=== PATIENT | female | born 1970 | race African-American/Black ===

== ENCOUNTER 2020-06-14 06:34 | Observation (INO) | payer MEDICARE, MEDICAID, SELFPAY ==
[2020-06-14] VITALS (12 sets, daily range): BP systolic 107–134; BP diastolic 70–87; PULSE 63–96; RESP 16–22; TEMP 36.4–37; O2SAT 96–100; BMI 37.7
--- NOTE | ~2020-06-14 | CT_ITS ---
EXAMINATION: CT BRAIN W/O DATE: 06/14/2020 09:56 INDICATION: Seizure TECHNIQUE: Computed tomography (CT) of the head was performed without intravenous contrast. The dose- length product was 605.33 mGy-cm. Automated exposure control and iterative reconstruction technique w ere employed. COMPARISON: CT dated 03/25/2018 FINDINGS: Normal brain parenchymal volume for age. Normal rosales-white differentiation. No acute intrac ranial hemorrhage, infarction, mass or mass effect. No ventriculomegaly or midline shift. Midline sagittal images demonstrate a normal corpus callosum, c raniovertebral junction and sella turcica. Basilar cisterns are patent. Paranasal sinuses and mastoids are pneumatized. No depressed skull fractures. IMPRESSION: 1. No acute intracranial abnormality. Reviewed, dictated and finalized at location A. DRAFTER
--- NOTE | ~2020-06-14 | MR_ITS ---
EXAMINATION: MRA brain wo con DATE: 06/15/2020 14:17 INDICATION: Seizure. TECHNIQUE: Magnetic resonance angiography (MRA) of the brain was performed without intravenous contra st with T1-weighted SPGR by the 3D [id number] technique. Maximum intensity projection 3D-reconstr uctions were obtained. COMPARISON: Brain MRI 03/29/2014, head CT 06/14/2020 FINDINGS: Motion artifact is noted. The vertebral arteries are codominant. There is no significant stenosis of basilar artery or the posterior cerebral arteries. There is no significant stenosis of the intracrani al internal carotid arteries or anterior or middle cerebral arteries. Anterior communicating artery i s normal. Posterior communicating arteries are not identified. There is no aneurysm. IMPRESSION: 1. Normal MRA. No aneurysm or significant intracranial arterial stenosis. Reviewed, dictated and finalized at location B. PHONE INTERCEPTOR OPERATOR
--- NOTE | 2020-06-14 07:19 | ED.GENADULT ---
HPI - General Adult General Chief complaint: Seizure Stated complaint: i had multiple seizures Time Seen by Provider: 06/14/20 07:04 Source: patient and other (fiance) History of Present Illness HPI narrative: Patient is a 50 y/o female complaining of multiple seizures earlier this morning. Her fiance states that she had 4-5 episodes of shaking and biting tongue since 1:00 AM this morning. He states that each episodes last 1-2 minutes. There is no known alleviating or exacerbating factor. She complains of bilateral temporal headache. She describes her headache as aching and rates it as 5/10. She states that she takes Vimpat for seizure and she is compliant with her medication. Related Data Home Medications Medication Instructions Recorded Confirmed lacosamide [Vimpat] 200 mg PO BID 06/14/20 06/14/20 Allergies Allergy/AdvReac Type Severity Reaction Status Date / Time No Known Allergies Allergy Verified 06/14/20 10:29 Review of Systems Constitutional: Constitutional: Denies chills, Denies fever(s), Denies headache(s) and Denies weakness Eyes: Eyes: Denies blurry vision ENT: Denies headache(s) and Denies neck pain Cardiovascular: Cardiovascular: Denies chest pain and Denies dyspnea Respiratory: Respiratory: Denies cough and Denies dyspnea Gastrointestinal: Gastrointestinal: Denies abdominal pain, Denies diarrhea, Denies nausea and Denies vomiting Genitourinary: Genitourinary: Denies hematuria and Denies dysuria Musculoskeletal: Musculoskeletal: Denies back pain and Denies neck pain Neurologic: Reports headache(s), Reports seizure-like activity and Denies weakness [facility] Family History Family History (Updated 06/14/20 @ 10:33 by Sommer Peralta RN) Mother Hypertension Social History Social History Smoking status: Never smoker Alcohol intake: current Drinks per week: 1 Substance use: current Substance use type: marijuana Last use: 06/13/2020 Gender identity (if verbalized by the patient): Female Spiritual care concerns: No Exam Const: General: no acute distress and well developed Orientation/consciousness: oriented to person, oriented to place, oriented to time and patient oriented x3 HENMT: Head: normocephalic Ears: external ears normal General nose exam: Normal external nose present Eyes: General: appearance normal, both eyes and all related structures Conjunctivae: conjunctivae normal Neck: Neck: normal visual inspection and full ROM Chest: Chest palpation & inspection: normal inspection of the chest and no tenderness Resp: Effort & Inspection: normal respiratory effort Auscultation: clear to auscultation bilaterally Cardio: Rate: regular rate Rhythm: regular rhythm GI: GI Palp: No abdominal tenderness and Yes Soft to palpation Skin: General skin exam: normal color and turgor normal Neuro: General: oriented to person, oriented to place, oriented to time and patient oriented x3 Cranial nerves: Yes CN's II-XII intact bilaterally Cognition (Neuro): normal cognition Speech: normal speech Motor exam (neuro): 5/5 motor strength present throughout Sensory Exam: normal sensation Coordination: [id number]-[id number] test normal and ajzb-[id number] test normal Extrem: General: normal to inspection, full ROM and no pedal edema Psych: Appearance: grossly normal Mental Status: mental status grossly normal Affect: normal affect Course Reevaluation(s) Reevaluation #1: Patient had another episode of seizure, will order Ativan Date: 06/14/20 Time: 07:45 Consultations Consultation #1: Discussed with Dr. Guan, who agrees to consult. Date: 06/14/20 Time: 09:24 Consultation #2: Discussed with Dr. Weiss, who agrees to admit. He also recommends head CT. Date: 06/14/20 Time: 09:29 Vital Signs Vital signs: Vital Signs Temperature 36.4 C 06/14/20 06:39 Pulse Rate 96 06/14/20 06:39 Respiratory Rate 16 06/14/20 06:39 Bloo
[2020-06-14 07:32] LABS: Basophils Percent Auto 0.4 % (0.2-1.2); Eosinophils Percent Auto 0.2 % (0-4.4); Hematocrit 39.7 % (37.0-47.0); Hemoglobin 13.3 g/dL (12.0-15.0); Immature Granulocyte Absolute 0.12 K/mm3 (0.00-0.031); Immature Granulocyte Percent A 1.3 % (0-0.5); Lymphocytes Absolute Auto 1.23 K/mm3 (0.9-3.2); Lymphocytes Percent Auto 13.8 % (18.3-44.2); Mean Corpuscular HGB Conc 33.5 g/dl (32-36); Mean Corpuscular Hemoglobin 31.9 pg (26-34); Mean Corpuscular Volume 95.2 fl (80-100); Mean Platelet Volume 10.2 fl (7.4-10.4); Monocytes Absolute Auto 0.6 K/mm3 (0.1-0.6); Monocytes Percent Auto 6.4 % (2.6-8.5); Neutrophils Percent Auto 77.9 % (45.5-73.1); Platelet Count Result 185 k/mm3 (150-375); Red Blood Count 4.17 M/mm3 (4.2-5.4); Red Cell Distribution Width 13.2 % (11.5-14.5); White Blood Count 8.9 K/mm3 (4.5-10.0)
[2020-06-14 07:37] LABS: Anion Gap 6 mmol/L (8-16); Blood Urea Nitrogen 17 mg/dL (7-17); Calcium 8.9 mg/dL (8.4-10.2); Carbon Dioxide 28 mmol/L (22-30); Chloride 103 mmol/L (98-107); Estimated Glomerular Filt Rate > 60; Glucose 110 mg/dL (65-105); Potassium 4.2 mmol/L (3.4-5.0); Sodium 137 mmol/L (137-145)
--- NOTE | 2020-06-14 07:41 | PC.NURSE ---
Patient noted to have seizure lasting approx 45 seconds, ativan 1 mg IVP at this time. Verbal order Dr. Chávez.
--- NOTE | 2020-06-14 07:47 | PC.NURSE ---
Oxygen saturation 89% on room air, placed on 2 li NC with oxygen saturation at 100%. Dr. Chávez notified.
[2020-06-14] MEDS: LORazepam INJ (*CRX) 2 MG/ML VIAL (07:49)
--- NOTE | 2020-06-14 08:37 | PC.NURSE ---
Oxygen removed from patient currently on room air with oxygen saturation of 100%
[2020-06-14 09:14] LABS: Lactic Acid Reflex 0.8 mmol/L (0.7-2.1)
--- NOTE | 2020-06-14 10:20 | PC.NURSE ---
This patient, Mili Valle, was admitted to 2 Medical Room 240-01. Patient/family oriented to hospital policies and general routines including ID bracelet, bed and alarms, visiting hours, pain management, procedures, bathroom and other care routines, personal items, smoking policy, room service/diet, and visiting hours. Information on how to activate the Rapid Response Team has been discussed. Patient/Family are encouraged to report perceived risks to care and to ask questions if they do not understand what they are told or what they should do.
[2020-06-14] MEDS: ASPIRIN 325 MG TABLET 650 MG PO (12:05)
--- NOTE | 2020-06-14 13:46 | PM.IMHP ---
H&P: HPI History of Present Illness Date/Time: 06/14/20 13:46 Chief complaint: Seizure Narrative: Mili Valle is a 50 year old female Who has a history of epilepsy. The patient stated that her seizures started approximately 4 years ago. She said she noticed to seizures after she had been to a democrat and felt like her drink had been spiked. The patient has never been checked for sleep apnea but has most of her seizures when she is sleeping. She has a her fiance noticed that she had at least 3-4 seizures during the night. She also bit her tongue. The patient stated that she has tried other medications in the past and he did work for her. She said she has been on Keppra and that did not work for her so she has been on Vimpat and she has been compliant with that. She said the last time she had a seizure was about 2 months ago. The patient states she always has a headache and feels very sleepy afterwards. The patient was complaining of a headache this morning and took aspirin for and that seemed to relieve her headache. Patient stated that her tongue is sore from biting it during her sleep. Her neurologist is Dr. Salaazr. She said her last visit with him was a virtual visit she had not physically see him. She said that she has very little pills left the needs refill. She also has a history of asthma and uses a rescue inhaler. She has had no fevers or chills no nausea vomiting or diarrhea. Her head CT was negative per radiology read. The patient was given Ativan in the emergency room. The patient stated that she had multiple seizures throughout the night at least 4 5 and lasted 1-2 minutes according to her fiance. Dr. Salazar has been consulted. Patient is being admitted into observation status on the date of service of 06/14/2020 Review of Systems Review of Systems: All systems reviewed & are unremarkable except as noted in HPI and below Constitutional: Constitutional: Reports as per HPI and Reports no additional constitutional complaints Eyes: Eyes: Reports as per HPI and Reports no additional eye complaints ENT: Reports system reviewed and no additional complaints, except as documented and Reports Normal hearing present Cardiovascular: Cardiovascular: Reports no additional cardiovascular complaints Respiratory: Respiratory: Reports no additional respiratory complaints and Reports no additional respiratory complaints Gastrointestinal: Gastrointestinal: Reports as per HPI and Reports no additional gastrointestinal complaints Musculoskeletal: Musculoskeletal: Reports no additional musculoskeletal complaints Integumentary/Breasts: Skin/Breast: Reports system reviewed and no additional complaints, except as docu and Reports as per HPI Neurologic: Reports system reviewed and no additional complaints, except as documented, Reports as per HPI and Reports Normal hearing present Psychiatric: Psychiatric: Reports no additional psychiatric complaints and Reports as per HPI Endocrine: Endocrine: Reports no additional endocrine complaints Hematologic/Lymphatic: Hematologic/Lymphatic: Reports no additional hematologic/lymphatic complaints Allergic/Immunologic: Allergic/Immunologic: Reports no additional allergic/immunologic complaints PMFSH Past Medical History Medical History (Updated 06/14/20 @ 13:57 by Joycelyn Paredes NP) Asthma Seizure Surgical History Surgical History (Updated 06/14/20 @ 13:52 by Joycelyn Paredes NP) H/O tubal ligation Family History Family History (Updated 06/14/20 @ 13:53 by Joycelyn Paredes NP) Mother Hypertension Father Hypertension Social History Social History (Updated 06/14/20 @ 13:54 by Joycelyn Paredes NP) Social History: the patient lives with her fiance. She does not have a durable power sports attorney at this time. She has 2 children. She wishes to be a full code. 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 The patient is lifelong nonsmoker but uses marijuana
[2020-06-14] MEDS: LACOSAMIDE (*CRX) 200 MG TABLET PO (21:04)
[2020-06-15] VITALS (7 sets, daily range): BP systolic 119–130; BP diastolic 62–72; PULSE 59–75; RESP 14–20; TEMP 36.4–36.7; O2SAT 99–100
[2020-06-15 05:39] LABS: Basophils Percent Auto 0.2 % (0.2-1.2); Eosinophils Absolute Auto 0.1 K/mm3 (0-0.3); Eosinophils Percent Auto 1.7 % (0-4.4); Hematocrit 37.9 % (37.0-47.0); Hemoglobin 12.9 g/dL (12.0-15.0); Immature Granulocyte Absolute 0.01 K/mm3 (0.00-0.031); Immature Granulocyte Percent A 0.1 % (0-0.5); Lymphocytes Absolute Auto 2.51 K/mm3 (0.9-3.2); Lymphocytes Percent Auto 30.8 % (18.3-44.2); Mean Corpuscular Hemoglobin 31.7 pg (26-34); Mean Corpuscular Volume 93.1 fl (80-100); Monocytes Absolute Auto 0.9 K/mm3 (0.1-0.6); Monocytes Percent Auto 10.5 % (2.6-8.5); Neutrophils Absolute Auto 4.6 K/mm3 (1.3-6.7); Neutrophils Percent Auto 56.7 % (45.5-73.1); Platelet Count Result 175 k/mm3 (150-375); Red Blood Count 4.07 M/mm3 (4.2-5.4); Red Cell Distribution Width 12.7 % (11.5-14.5); White Blood Count 8.2 K/mm3 (4.5-10.0)
[2020-06-15 05:51] LABS: Alanine Aminotransferase 14 U/L (4-35); Albumin Level 3.8 g/dL (3.5-5.1); Alkaline Phosphatase 28 U/L (38-126); Anion Gap 6 mmol/L (8-16); Aspartate Amino Transferase 20 U/L (14-36); Bilirubin,Total 0.8 mg/dL (0.2-1.3); Blood Urea Nitrogen 13 mg/dL (7-17); Calcium 9.1 mg/dL (8.4-10.2); Carbon Dioxide 27 mmol/L (22-30); Chloride 105 mmol/L (98-107); Estimated CRCL calculation 71 ml/min; Estimated Glomerular Filt Rate > 60; Glucose 94 mg/dL (65-105); Potassium 3.1 mmol/L (3.4-5.0); Sodium 138 mmol/L (137-145)
[2020-06-15 06:37] LABS: Thyroid Stimulating Hormone Reflex 0.615 uIU/mL (0.465-4.68)
[2020-06-15] MEDS: POTASSIUM CHLORIDE 20 MEQ TABLET 40 MEQ PO ×2 (08:03→16:33)
[2020-06-15] MEDS: ALBUTEROL SULFATE (*SP) AEROSOL 1 PUFF 2 PUFF INHALATION (08:15)
[2020-06-15] MEDS: LACOSAMIDE (*CRX) 100 MG TABLET BY MOUTH (10:03)
--- NOTE | 2020-06-15 11:22 | WPDNEURCNPN ---
Assessment and Plan Assessment and plan (1) Seizure: Code(s): R56.9 - Unspecified convulsions Status: Chronic Additional Plan seizure disorder with possibility of running out of the medication plan is to continue the Vimpat as such and return to the office for the follow-up in 3 months Consult date: 06/15/20 Time Seen: 11:00 HPI: Mili Valle is a 50 year old femaleWith history of epilepsy of 4 years duration and also with the history that most of her seizures recurring during sleep during the seizure this time she bit her tongue she has been on Keppra which was subsequently switched over to Vimpat and the last seizure was about 2 months ago she does have a history of bronchial asthma Review of Systems Review of Systems: All systems reviewed & are unremarkable except as noted in HPI and below PMFSH Past Medical History Medical History Asthma Seizure Surgical History Surgical History H/O tubal ligation Family History Family History Mother Hypertension Father Hypertension Social History Social History Social History: the patient lives with her fiance. She does not have a durable power admitted attorneys at this time. She has 2 children. She wishes to be a full code. 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 No illicit drugs. Smoking status: Never smoker Alcohol intake: current Drinks per week: 1 Substance use: current Substance use type: marijuana Last use: 06/13/2020 Living arrangements: with family Gender identity (if verbalized by the patient): Female Spiritual care concerns: No Meds Home Medications and Allergies Home Medications Medication Instructions Recorded Confirmed Type lacosamide [Vimpat] 200 mg PO BID 06/14/20 06/14/20 History Allergies Allergy/AdvReac Type Severity Reaction Status Date / Time No Known Allergies Allergy Verified 06/14/20 10:29 Vital Signs Vital Signs - 24 hr 06/14/20 12:00 06/14/20 14:00 06/14/20 16:00 Temperature 36.7 C Pulse Rate 72 63 81 Respiratory Rate 16 Blood Pressure 126/76 Pulse Oximetry 100 06/14/20 18:00 06/14/20 20:00 06/15/20 00:00 Temperature 36.7 C 37.0 C Pulse Rate 74 73 75 Respiratory Rate 16 20 Blood Pressure 128/74 127/70 Pulse Oximetry 99 97 06/15/20 04:00 06/15/20 08:00 06/15/20 10:00 Temperature 36.4 C L 36.7 C Pulse Rate 68 73 73 Respiratory Rate 20 14 Blood Pressure 121/62 119/72 Pulse Oximetry 99 100 Exam Narrative: Exam Narrative: awake alert cooperative in no obvious acute distress head normocephalic with no cranial bruit ear nose throat examination normal neck is supple with no cervical bruit no thyromegaly no lymphadenopathy heart regular with no murmur lungs clear with no rhonchi or crepitations abdomen is soft normal bowel sounds nontender neurological examination revealed awake alert oriented x3 his speech nor dysphasic not dysarthric not dysphonic pupils round regular feels the vision full extraocular motions. Face symmetrical tongue midline motor examination revealed normal strength and tone symmetrical reflexes downgoing plantar responses no evidence of cerebellar deficit Results Labs CBC & Chem 7: 06/15/20 05:24 06/15/20 05:24 Labs: Short CBC 06/15/20 Range/Units 05:24 WBC 8.2 (4.5-10.0) K/mm3 Hgb 12.9 (12.0-15.0) g/dL Hct 37.9 (37.0-47.0) % Plt Count 175 (150-375) k/mm3 [facility] 06/15/20 05:24 Sodium 138 Potassium 3.1 L Chloride 105 Carbon Dioxide 27 BUN 13 Creatinine 0.90 Glucose 94 Calcium 9.1 Liver Function 06/15/20 Range/Units 05:24 Total Bilirubin 0.8 (0.2-1.3) mg/dL AST 20
--- NOTE | 2020-06-15 11:27 | WPDNEURCNPN ---
Assessment and Plan Assessment and plan (1) Seizure: Code(s): R56.9 - Unspecified convulsions Status: Chronic Additional Plan continue meds as such Consult date: 06/15/20 Time Seen: 11:15 HPI: Mili Valle is a 50 year old female [facility] Past Medical History Medical History (Updated 06/15/20 @ 11:26 by Dante Guan MD) Asthma Seizure Surgical History Surgical History H/O tubal ligation Family History Family History Mother Hypertension Father Hypertension Social History Social History Social History: the patient lives with her fiance. She does not have a durable power admitted attorneys at this time. She has 2 children. She wishes to be a full code. 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 No illicit drugs. Smoking status: Never smoker Alcohol intake: current Drinks per week: 1 Substance use: current Substance use type: marijuana Last use: 06/13/2020 Living arrangements: with family Gender identity (if verbalized by the patient): Female Spiritual care concerns: No Meds Home Medications and Allergies Home Medications Medication Instructions Recorded Confirmed Type lacosamide [Vimpat] 200 mg PO BID 06/14/20 06/14/20 History Allergies Allergy/AdvReac Type Severity Reaction Status Date / Time No Known Allergies Allergy Verified 06/14/20 10:29 Vital Signs Vital Signs - 24 hr 06/14/20 12:00 06/14/20 14:00 06/14/20 16:00 Temperature 36.7 C Pulse Rate 72 63 81 Respiratory Rate 16 Blood Pressure 126/76 Pulse Oximetry 100 06/14/20 18:00 06/14/20 20:00 06/15/20 00:00 Temperature 36.7 C 37.0 C Pulse Rate 74 73 75 Respiratory Rate 16 20 Blood Pressure 128/74 127/70 Pulse Oximetry 99 97 06/15/20 04:00 06/15/20 08:00 06/15/20 10:00 Temperature 36.4 C L 36.7 C Pulse Rate 68 73 73 Respiratory Rate 20 14 Blood Pressure 121/62 119/72 Pulse Oximetry 99 100 Results Labs CBC & Chem 7: 06/15/20 05:24 06/15/20 05:24 Labs: Short CBC 06/15/20 Range/Units 05:24 WBC 8.2 (4.5-10.0) K/mm3 Hgb 12.9 (12.0-15.0) g/dL Hct 37.9 (37.0-47.0) % Plt Count 175 (150-375) k/mm3 BMP 06/15/20 05:24 Sodium 138 Potassium 3.1 L Chloride 105 Carbon Dioxide 27 BUN 13 Creatinine 0.90 Glucose 94 Calcium 9.1 Liver Function 06/15/20 Range/Units 05:24 Total Bilirubin 0.8 (0.2-1.3) mg/dL AST 20 (14-36) U/L ALT 14 (4-35) U/L Alkaline Phosphatase 28 L (38-126) U/L Albumin 3.8 (3.5-5.1) g/dL Quality VTE Prophylaxis VTE prophylaxis: mechanical ordered
--- NOTE | 2020-06-16 13:40 | PM.DS ---
DS: Admitting Diagnosis Admitting Diagnosis Admitting Diagnosis: Seizure DS: Discharge Diagnosis Discharge Diagnosis (1) Seizure: Code(s): R56.9 - Unspecified convulsions Status: Chronic Assessment and Plan: The patient states that she had been having seizures during her sleep. apnea link here negative for obstructive sleep apnea with AHI high score of 0. She is on Vimpat 100 a.m. and 200 p.m. and takes it routinely. Although she states she will need to renew her prescription she is almost out. The patient stated that she does use marijuana on a daily basis to help with her seizures which may actually precipitate. Her CT scan of the brain was negative. MRA of the brain at discharge was negative. EEG was pending at discharge . Dr. Salazar. saw the patient and her Vimpat was increased to 200 mg bid. She will follow up with Dr Guan in 6 weeks (2) Asthma: Code(s): J45.909 - Unspecified asthma, uncomplicated Status: Chronic Assessment and Plan: P.r.n. albuterol inhaler and refill prescribed at d/c (3) Headache: Qualifiers: Headache chronicity pattern: unspecified pattern Headache type: unspecified Intractability: not intractable Qualified Code(s): R51.9 - Headache, unspecified Code(s): R51.9 - Headache, unspecified Status: Acute Assessment and Plan: patient stated that Tylenol does not help but aspirin does. She usually has a headache after she has a seizure.and it resolved and MRA neg as stated DS: Summary Hospital Course Hospital Course: 50-year-old female with known seizure disorder admitted after having 4-5 documented seizures throughout the night.. CT brain and MR a of brain were negative and she had no further seizures after admission. She was seen by Neurology and her Vimpat was increased to 200 mg b.i.d.. Apnea link was negative . She will follow-up with neurology in 6 weeks Time Spent with Patient Time attestation: Total time spent providing and/or coordinating discharge services: 35 minutes Exam Narrative: Exam Narrative: Condition on discharge blood pressure 130/70 pulse 66 saturating 100% on room air afebrile pupils equal and reactive to light mouth tongue has macerations bilaterally lungs clear CV regular rate rhythm no murmurs abdomen soft nontender no masses extremities without edema good distal pulses neuro alert cooperative no focal deficits patient is stable and able to be discharged home Discharge Plan Discharge Attending physician on discharge: Caleb Mei Consulting providers: Giovanni Morales Jr. ; Dante Guan Discharging Clinician: Caleb Mei Patient Disposition: Home, Self-Care Activity: no driving and as tolerated Diet: regular Patient Instructions: Antibiotic Form Stand Alone Forms: General Discharge Information Follow-up/Referrals: Dante Guan MD [Physician] - 6 Weeks Discharge Medications: New Vimpat 200 mg Tablet 200 mg PO Q12HR Qty: 60 RF: 2 albuterol sulfate 90 mcg/actuation HFA aerosol inhaler 2 puff inhalation QID PRN (Reason: shortness of breath or wheezing) Qty: 8.5 RF: 1 Discontinued Vimpat 100 mg tablet 200 mg PO BID RF: 0 Date of admission: 06/14/20 09:31 Primary Care Provider: PHYSICIAN,AIR CONDITIONING UNIT ASSEMBLER Admitting Provider: Claudio Weiss Attending physician on admission: Claudio Weiss Condition: Stable Quality VTE Prophylaxis VTE prophylaxis: mechanical ordered
--- NOTE | 2020-06-17 09:28 | WPDNEUROLOGY ---
Neurology EEG Report General Information Date of Study: 06/15/20 TEST eeg DIAGNOSIS seizures CONDITION OF RECORDING awake , drowsy and sleep EEG NUMBER [id number] CLINICAL HISTORY seizures EEG DESCRIPTION basic resting occipital frequency consists of medium to high voltage 8 to 9 hertz per second alpha admixed with low-voltage 15 to 18 hertz per second beta. Bilateral symmetrical sleep activity seen during sleep. non paroxysmal, nonfocal and nonlateralizing. impression normal EEG
[2020-06-18 14:33] LABS: Prolactin 11.8 ng/mL (***)
== END 2020-06-15 17:19 | disposition home or self-care (01) ==
LOC: ANHED 07:08 → ANH2MED 10:59
PROVIDERS: Nurse Practitioner; Admitting Provider Internal Medicine; Emergency Provider Emergency Medicine; Visit Provider Internal Medicine
DX: G40.909 Epilepsy, unspecified, not intractable, without status epilepticus (principal); F12.90 Cannabis use, unspecified, uncomplicated; R51.9 Headache, unspecified; J45.909 Unspecified asthma, uncomplicated; R29.818 Other symptoms and signs involving the nervous system; Z79.899 Other long term (current) drug therapy
CPT/HCPCS: 36415; 70450; 70544; 80048; 80053; 83605; 83735; 84146; 84443; 85025; 94762; 95816; 96374; 99285; A9270; G0378; J2060

== ENCOUNTER 2020-09-18 08:19 | Outpatient (CLI) | payer MEDICARE, MEDICAID, SELFPAY ==
--- NOTE | ~2020-09-18 | MM_ITS ---
EXAMINATION: MM screening niurka BI w logan HISTORY: Screening mammogram TECHNIQUE: Craniocaudal and mediolateral oblique 3-D tomosynthesis images were obtained and synthetic 2-D images were generated. CAD analysis was submitted and interpreted. COMPARISON: No prior mammogram is available for comparison at this institution. BREAST PARENCHYMAL COMPOSITION: There are scattered areas of fibroglandular density. FINDINGS: There is no evidence of suspicious mass, calcification, or architectural distortion to sugg est malignancy in either breast. IMPRESSION: 1. No mammographic evidence of malignancy. 2. Recommend routine screening mammography in one year. BI-RADS Category 1: Negative Reviewed, dictated and finalized at location A. ION BAGGAGE PORTER
== END 2020-09-18 08:20 | disposition home or self-care (01) ==
LOC: ANHIMG 08:23
PROVIDERS: PCP Physician Assistant; Visit Provider Physician Assistant
DX: Z12.31 Encounter for screening mammogram for malignant neoplasm of breast (principal)
CPT/HCPCS: 77063; 77067

== ENCOUNTER 2022-01-19 10:30 | Emergency (ER) | payer MEDICARE, MEDICAID, SELFPAY ==
--- NOTE | ~2022-01-19 | CT_ITS ---
EXAMINATION: CT brain wo con DATE: 01/19/2022 11:43 INDICATION: Fall post seizure. Left forehead hematoma. TECHNIQUE: Computed tomography (CT) of the head was performed without intravenous contrast. The mA wa s adjusted according to patient size. Iterative reconstruction technique was employed. Exam dose: 52 9.67 mGy-cm total exam DLP. COMPARISON: 06/15/2020 MRI brain 06/14/2020 CT brain FINDINGS: No intracranial mass lesion or hemorrhage or cerebrovascular accident. No midline shift or mass effect. Normal ventricular size. Normal rosales-white matter differentiation. No subdural or epidur al hematoma. No orbital mass lesion. Right frontal sinus osteoma. No fracture or bone destruction of the cranial vault. Included paranasal sinuses and mastoid air cells are normally developed and aerated. IMPRESSION: No skull fracture or significant intracranial abnormality Reviewed, dictated and finalized at [facility]. Reviewed, dictated and finalized at [facility].
--- NOTE | ~2022-01-19 | CT_ITS ---
EXAMINATION: CT cervical spine wo con DATE: 01/19/2022 11:43 INDICATION: Fall post seizure with head injury TECHNIQUE: Computed tomography (CT) of the cervical spine was performed without intravenous contrast. Automated exposure control and iterative reconstruction technique were employed. The dose-length pro duct was 257.30 mGy-cm. COMPARISON: None FINDINGS: Straightening of the normal cervical lordosis. There is prominent heterotopic ossification along the posterior longitudinal ligament particularly at C2-C3 where it appears bridging and where it contribu shirley to central canal stenosis as detailed below. There is also posterior fusion at the bilateral C2-C 3 facet joints. Additional heterotopic ossification extending caudally from the tip of the clivus ant eriorly and from the posterior margin of the occiput to the resulting in mild stenosis at the foramen magnum. Vertebral body heights are normal. No fracture. Moderate disc height loss at C2-C3 and mild disc height loss at C3-C4, C5-C6, C7-T1 and T1-T2. Thyromegaly with heterogeneous attenuation suggest ing multinodular goiter. Cervical soft tissues are otherwise unremarkable. The following disc levels are specifically discussed: C2-C3: Large amount of heterotopic ossification along the posterior longitudinal ligament spanning th e central posterior aspect of the disc space. This results in moderate central canal stenosis beginni ng at the level of the ring of C1 and extending to the level of the disc space with the central canal measuring 7-8 mm in AP diameter in the mid sagittal plane. There bilateral uncovertebral and facet j oints are fused. There is no neural foraminal stenosis. C3-C4: Digital heterotopic ossification most prominent at the level of the disc space where it result s in moderate central canal stenosis with central canal measuring 7-8 mm in the mid sagittal plane. M ild stenosis at the level of the midportion of the C3 and C4 vertebral bodies. There is mild left and severe right uncovertebral joint osteoarthritis. There is mild bilateral facet joint osteoarthritis. There is mild left and moderate right neural foraminal stenosis. C4-C5: Heterotopic ossification along the posterior longitudinal ligament. Lead and caudal to the lev el of the disc space resulting in mild central canal stenosis. There is mild to moderate bilateral un covertebral joint osteoarthritis. There is mild bilateral facet joint osteoarthritis. There is mild r ight and mild to moderate left neural foraminal stenosis. C5-C6: Small osteophyte arising from the central inferior endplate of C5. There is mild left and mode rate right uncovertebral joint osteoarthritis. There is mild bilateral facet joint osteoarthritis. Th ere is mild bilateral neural foraminal stenosis. There is mild central canal stenosis. C6-C7: There is minimal bilateral uncovertebral joint osteoarthritis. There is mild bilateral facet joint osteoarthritis. There is mild right and minimal left neural foraminal stenosis. There is no candi tral canal stenosis. C7-T1: Small osteophytes at the central aspect of the C7 and T1 endplates. There is mild bilateral un covertebral joint osteoarthritis. There is mild to moderate bilateral facet joint osteoarthritis. The re is mild left neural foraminal stenosis. There is mild central canal stenosis. IMPRESSION: 1. No acute osseous abnormality. 2. Moderate cervical spondylosis with prominent ossification of the posterior longitudinal ligament r esulting in moderate central canal stenosis from the level of the ring of C1 through the C3-C4 disc s pace. 3. Multinodular goiter. Reviewed, dictated and finalized at [facility].
--- NOTE | ~2022-01-19 | XR_ITS ---
XR ribs LT 2V w CXR 2V DATE: 01/19/2022 11:54 INDICATION: Fall. Anterior left rib pain. TECHNIQUE: AP and lateral chest. 3 views of the left ribs. COMPARISON: 11/08/2017 PA and lateral chest FINDINGS: Normal heart size. No hilar or mediastinal enlargement. No pulmonary infiltrate or consolid ation, pleural effusion or pulmonary vascular congestion or pneumothorax. No left rib fracture or bone destruction is detected. IMPRESSION: No detectable left rib fracture No active cardiopulmonary disease Reviewed, dictated and finalized at [facility].
[2022-01-19 10:31] VITALS: BP 135/105; PULSE 101; RESP 20; TEMP 36.3; O2SAT 100
--- NOTE | 2022-01-19 10:50 | ECG_ITS ---
Measurements Intervals [place] Rate: 91 P: 57 NC: 159 QRS: -80 QRSD: 101 T: 66 QT: 367 QTc: 453 Interpretive Statements SINUS RHYTHM LEFT ANTERIOR FASCICULAR BLOCK ABNORMAL ECG Electronically Signed On 01-19-2022 11:31:54 CDT by Charles Romero D.O.
--- NOTE | 2022-01-19 10:50 | ED.SEIZURE ---
HPI - Seizure General Chief Complaint: Seizure Stated Complaint: SEIZURE Time Seen by Provider: 01/19/22 10:43 Source: patient Mode of arrival: EMS Limitations: clinical condition History of Present Illness HPI Narrative: 52 years old -[place] female brought to the emergency room by ambulance from a grocery store with possible seizure-like activities. No witnessed came with the patient to the ED. The arrived and he told me that patient was at the gas station, had seizure-like activity while standing fell to the floor The EMT reported that patient was restless unable to sit still and was post ictal with slight confusion at that time. On arrival to the emergency room, patient main complaint is left chest pain, left forehead headache and restlessness. Last seizure was 2 months ago, according to the that the patient is compliant with her seizure medication/Keppra. At the time of discharge, patient reports not taking her Keppra as prescribed, she misses a lot . Related Data Home Medications Medication Instructions Recorded Confirmed citalopram 10 mg tablet 10 mg PO DAILY 03/16/21 lacosamide 200 mg tablet (Vimpat) mg 01/19/22 levetiracetam 500 mg tablet tablet PO 01/19/22 Allergies Allergy/AdvReac Type Severity Reaction Status Date / Time No Known Allergies Allergy Verified 06/14/20 10:29 Review of Systems Review of Systems: All systems reviewed & are unremarkable except as noted in HPI and below PMFSH Past Medical History Medical History Asthma Seizure Surgical History Surgical History H/O tubal ligation Family History Family History Mother Hypertension Father Hypertension Social History Social History Social History: the patient lives with her fiance. 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 She has 2 children. She wishes to be a full code. 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 No illicit drugs. Smoking status: Never smoker Alcohol intake: current Drinks per week: 1 Substance use: current Substance use type: marijuana Last use: 06/13/2020 Gender identity (if verbalized by the patient): Female Spiritual care concerns: No Exam Narrative: General appearance: Well-developed, well-nourished, restless, complaining of left chest pain, takes her some time to answer questions Skin: Normal color Head: Normocephalic, left forehead hematoma Eyes: Clear conjunctiva ENT: Oropharynx normal, ears normal, nose normal Neck: Supple, nontender Chest and respiratory: Airway patent, no respiratory distress, no accessory muscle use, moderate tenderness left chest, no bruises or rash. Heart: Regular rate/rhythm Abdomen: Soft, nontender, no organomegaly, quiet bowel sounds Vascular: Normal peripheral pulses, normal capillary refill. Musculoskeletal: Normal range of motion, nontender back Neurologic: Alert and oriented ?3, FIELD ARTILLERY OPERATIONS SPECIALIST is normal as tested, no gross motor deficit Course Course Emergency Course: Initially patient reported that she is taking her medication by the book. Later she reported that she sometimes forgets to take her medications. Patient was advised to call her neurologist as soon as possible for reevaluation. Work-up did not show any significant findings to explain why patient have recurrent seizure except possible subtherapeutic medication Vital Signs Vital sig
[2022-01-19 11:02] VITALS: BP 128/98; PULSE 86; RESP 23; O2SAT 97
[2022-01-19] MEDS: HYDROmorphone HCL INJ (*CRX) 1 MG/ML SYR 0.5 MG IV PUSH (11:03)
[2022-01-19] MEDS: ONDANSETRON INJ 4 MG/2 ML VIAL IV PUSH (11:04)
[2022-01-19] MEDS: levETIRAcetam 1000MG/NACL100ML 1,000 MG/100 ML BAG 400 MG IVPB (11:06)
[2022-01-19 11:36] LABS: Basophils Percent Auto 0.2 % (0.2-1.2); Eosinophils Absolute Auto 0.1 K/mm3 (0-0.3); Eosinophils Percent Auto 0.8 % (0-4.4); Hemoglobin 15.6 g/dL (12.0-15.0); Immature Granulocyte Absolute 0.03 K/mm3 (0.00-0.031); Immature Granulocyte Percent A 0.3 % (0-0.5); Lymphocytes Absolute Auto 1.69 K/mm3 (0.9-3.2); Lymphocytes Percent Auto 18.3 % (18.3-44.2); Mean Corpuscular HGB Conc 35.5 g/dl (32-36); Mean Corpuscular Hemoglobin 33.8 pg (26-34); Mean Corpuscular Volume 95.2 fl (80-100); Mean Platelet Volume 10.2 fl (7.4-10.4); Monocytes Absolute Auto 0.8 K/mm3 (0.1-0.6); Monocytes Percent Auto 8.2 % (2.6-8.5); Neutrophils Absolute Auto 6.7 K/mm3 (1.3-6.7); Neutrophils Percent Auto 72.2 % (45.5-73.1); Platelet Count Result 154 k/mm3 (150-375); Red Blood Count 4.62 M/mm3 (4.2-5.4); Red Cell Distribution Width 13.5 % (11.5-14.5); White Blood Count 9.3 K/mm3 (4.5-10.0)
--- NOTE | 2022-01-19 11:40 | PC.NURSE ---
Pt is off the unit at CT at this time
[2022-01-19 11:46] LABS: Ethanol < 10 mg/dL (<10)
[2022-01-19 11:49] LABS: Alanine Aminotransferase 19 U/L (6-35); Albumin Level 4.4 g/dL (3.5-5.1); Alkaline Phosphatase 41 U/L (38-126); Anion Gap 3 mmol/L (8-16); Aspartate Amino Transferase 25 U/L (14-36); Bilirubin,Total 0.3 mg/dL (0.2-1.3); Blood Urea Nitrogen 13 mg/dL (7-17); Calcium 8.8 mg/dL (8.4-10.2); Carbon Dioxide 27 mmol/L (22-30); Chloride 107 mmol/L (98-107); Estimated Glomerular Filt Rate > 60; Glucose 107 mg/dL (65-110); Potassium 3.7 mmol/L (3.4-5.0); Sodium 137 mmol/L (137-145)
[2022-01-19 11:59] VITALS: BP 135/98; PULSE 67; RESP 17; O2SAT 99
[2022-01-19 11:59] LABS: Troponin I < 0.012 ng/mL (0.000-0.034)
[2022-01-19 12:02] VITALS: BP 114/60; PULSE 67; RESP 31; O2SAT 97
[2022-01-19 12:16] VITALS: BP 117/77; PULSE 70; RESP 24; O2SAT 99
[2022-01-19 12:24] LABS: INR 1.1
[2022-01-19 12:40] LABS: Appearance Urine Clear (Clear); Bilirubin Urine 1+ (Negative); Blood Urine 2+ (Negative); Color Urine Yellow (Yellow); Glucose Urine UA Negative (Negative); Ketones Urine Negative (Negative); Leukocyte Esterase Ur Negative LEU/UL (Negative); Nitrate Urine Negative (Negative); Protein Urine Trace mg/dL (Negative); Specific Grav Ur >= 1.030 (1.001-1.035); Urobilinogen Urine 0.2 mg/dL (<2.0); pH Urine 5.5 (5.0-9.0)
[2022-01-19 12:57] LABS: Bacteria Urine Trace /hpf; Mucus Urine Few /lpf; Squamous Epithelial Cell Urine Many /hpf (Few)
[2022-01-19 13:04] LABS: D Dimer 0.51 ug/mL (<0.48)
[2022-01-19 13:06] LABS: Amphetamine Screen Urine Negative (Negative); Barbiturate Screen Urine Negative (Negative); Benzodiazepines Screen Urine Negative (Negative); Cannabinoid Screen Urine Positive (Negative); Cocaine Screen Urine Negative (Negative); Methadone Screen Urine Negative (Negative); Opiate Screen Urine Negative (Negative); Phencyclidine Screen Urine Negative (Negative)
[2022-01-19 13:17] LABS: Add Urine Microscopic? YES
[2022-01-19 13:36] VITALS: BP 123/89; PULSE 101; RESP 20; O2SAT 99
== END 2022-01-19 13:35 | disposition home or self-care (01) ==
PROVIDERS: Emergency Provider Emergency Medicine; PCP Physician Assistant
DX: G40.909 Epilepsy, unspecified, not intractable, without status epilepticus (principal); Z79.899 Other long term (current) drug therapy; W18.30XA Fall on same level, unspecified, initial encounter
CPT/HCPCS: 36415; 70450; 71046; 71100; 72125; 80053; 80307; 81001; 81025; 84484; 85025; 85380; 85610; 85730; 93005; 96365; 96375; 99284; J1170; J1953; J2405

== ENCOUNTER 2022-06-16 07:27 | Emergency (ER) | payer MEDICARE, MEDICAID, SELFPAY ==
--- NOTE | ~2022-06-16 | XR_ITS ---
EXAMINATION: XR chest 1V INDICATION: Seizure TECHNIQUE: AP view of the chest is obtained. COMPARISON: 01/19/2022 FINDINGS: The lungs are free of acute opacities. No pleural effusion or pneumothorax. The cardiomedia stinal silhouette is normal. Calcified pulmonary nodules are consistent with old granulomatous diseas e. IMPRESSION: 1. No acute cardiopulmonary abnormality. Reviewed, dictated and finalized at [facility]. HUMAN RESOURCES
--- NOTE | ~2022-06-16 | CT_ITS ---
EXAMINATION: CT brain wo con INDICATION: Seizure COMPARISON: 01/19/2022 TECHNIQUE: Standard unenhanced head CT. The dose-length product (DLP) was 529.67 mGy-cm. The mA was a djusted according to patient size. Iterative reconstruction technique was employed. FINDINGS: There is no intracranial hemorrhage, acute infarction, or abnormal mass lesion. The ventric les are normal. There is no abnormal mass effect or midline shift. The rosales-white matter differentiat ion is normal. The basal cisterns are patent. The orbits are normal. There is mild mucosal thickening of the paranasal sinuses. IMPRESSION: 1. No acute intracranial abnormality. Reviewed, dictated and finalized at location [facility]. FRAME FITTER
[2022-06-16 07:34] VITALS: BP 114/80; PULSE 78; RESP 14; TEMP 36.8; O2SAT 100
--- NOTE | 2022-06-16 07:50 | ED.SEIZURE ---
HPI - Seizure General Chief Complaint: Seizure Stated Complaint: seizure Time Seen by Provider: 06/16/22 07:50 Source: patient Mode of arrival: ambulatory Limitations: no limitations History of Present Illness HPI Narrative: 52 years old -[place] female came to the emergency room by ambulance from work because of having seizure. Patient been working too much lately, night shifts, unable to take her medication on a daily basis. Currently on Keppra and Vimpat. She denies any fever, chills, nausea, vomiting, headache, trauma. Related Data Home Medications Medication Instructions Recorded Confirmed citalopram 10 mg tablet 10 mg PO DAILY 03/16/21 lacosamide 200 mg tablet (Vimpat) mg 01/19/22 levetiracetam 500 mg tablet tablet PO 01/19/22 Allergies Allergy/AdvReac Type Severity Reaction Status Date / Time No Known Allergies Allergy Verified 06/14/20 10:29 Review of Systems Review of Systems: All systems reviewed & are unremarkable except as noted in HPI and below PMFSH Past Medical History Medical History Asthma Seizure Surgical History Surgical History H/O tubal ligation Family History Family History Mother Hypertension Father Hypertension Social History Social History Social History: the patient lives with her fiance. She does not have a durable power energy attorney at this time. She has 2 children. She wishes to be a full code. 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 No illicit drugs. Smoking status: Never smoker Alcohol intake: current Drinks per week: 1 Substance use: current Substance use type: marijuana Last use: 06/13/2020 Gender identity (if verbalized by the patient): Female Spiritual care concerns: No Exam Narrative: General appearance: Well-developed, well-nourished Skin: Normal color Head: Normocephalic, nontraumatic Eyes: Clear conjunctiva ENT: Oropharynx normal, ears normal, nose normal Neck: Supple, nontender Chest and respiratory: Airway patent, no respiratory distress, no accessory muscle use Heart: Regular rate/rhythm Abdomen: Soft, nontender, no organomegaly, quiet bowel sounds Vascular: Normal peripheral pulses, normal capillary refill. Musculoskeletal: Normal range of motion, nontender back Neurologic: Alert and oriented ?3, MANAGER QUANTITATIVE is normal as tested, no gross motor deficit Course Vital Signs Vital signs: Vital Signs Temperature 36.8 C 06/16/22 07:34 Pulse Rate 78 06/16/22 07:34 Respiratory Rate 14 06/16/22 07:34 Blood Pressure 114/80 06/16/22 07:34 Pulse Oximetry 100 06/16/22 07:34 Temperature 36.8 C 06/16/22 07:34 Pulse Rate 78 06/16/22 07:34 Respiratory Rate 14 06/16/22 07:34 Blood Pressure 114/80 06/16/22 07:34 Pulse Oximetry 100 06/16/22 07:34 MDM - Seizure Differential Diagnosis Differential diagnosis: Likely other (Recurrent seizure, sleep deprivation) Lab Data 06/16/22 08:22 06/16/22 08:22 Labs: Lab Results 06/16/22 06/16/22 Range/Units 08:22 08:22 WBC 6.8 (4.5-10.0) K/mm3 RBC 4.20 (4.2-5.4) M/mm3 Hgb 13.6 (12.0-15.0) g/dL Hct 40.4 (37.0-47.0) % MCV 96.2 (80-100) fl MCH 32.4 (26-34) pg MCHC 33.7 (32-36) g/dl RDW 12.0 (11.5-14.5) % Plt Count 175 (150-375) k/mm3 MPV 9.6 (7.4-10.4) fl Immature Gran % (Auto) 0.3 (0-0.5) % Neut %
--- NOTE | 2022-06-16 07:51 | ECG_ITS ---
Measurements Intervals [place] Rate: 55 P: 57 NV: 186 QRS: -77 QRSD: 94 T: 64 QT: 447 QTc: 430 Interpretive Statements SINUS BRADYCARDIA WITH OCCASIONAL SUPRAVENTRICULAR PREMATURE COMPLEXES PATTERN CONSISTENT WITH PULMONARY DISEASE LEFT ANTERIOR FASCICULAR BLOCK [QRS AXIS <= -45, QR IN I, RS IN II] COMPARED TO ECG 01/19/2022 10:38:42 SINUS BRADYCARDIA NOW PRESENT HEART RATE REDUCED NO OTHER DIFFERENCE Electronically Signed On 06-17-2022 7:31:59 [employer] SEQUE[employer]ATION PLANT MANAGER by Jason Macdonald M.D.
[2022-06-16 08:34] LABS: Basophils Percent Auto 0.3 % (0.2-1.2); Eosinophils Percent Auto 0.3 % (0-4.4); Hematocrit 40.4 % (37.0-47.0); Hemoglobin 13.6 g/dL (12.0-15.0); Immature Granulocyte Absolute 0.02 K/mm3 (0.00-0.031); Immature Granulocyte Percent A 0.3 % (0-0.5); Lymphocytes Absolute Auto 1.84 K/mm3 (0.9-3.2); Lymphocytes Percent Auto 26.9 % (18.3-44.2); Mean Corpuscular HGB Conc 33.7 g/dl (32-36); Mean Corpuscular Hemoglobin 32.4 pg (26-34); Mean Corpuscular Volume 96.2 fl (80-100); Mean Platelet Volume 9.6 fl (7.4-10.4); Monocytes Absolute Auto 0.6 K/mm3 (0.1-0.6); Monocytes Percent Auto 8.3 % (2.6-8.5); Neutrophils Absolute Auto 4.4 K/mm3 (1.3-6.7); Neutrophils Percent Auto 63.9 % (45.5-73.1); Platelet Count Result 175 k/mm3 (150-375); White Blood Count 6.8 K/mm3 (4.5-10.0)
[2022-06-16 08:45] LABS: Alanine Aminotransferase 25 U/L (6-35); Albumin Level 4.4 g/dL (3.5-5.1); Alkaline Phosphatase 36 U/L (38-126); Anion Gap 3 mmol/L (8-16); Aspartate Amino Transferase 30 U/L (14-36); Bilirubin,Total 0.4 mg/dL (0.2-1.3); Blood Urea Nitrogen 17 mg/dL (7-17); Calcium 8.6 mg/dL (8.4-10.2); Carbon Dioxide 31 mmol/L (22-30); Chloride 105 mmol/L (98-107); Estimated CRCL calculation 62 ml/min; Estimated Glomerular Filt Rate > 60; Glucose 82 mg/dL (65-110); Sodium 139 mmol/L (137-145)
[2022-06-16] MEDS: levETIRAcetam 1000MG/NACL100ML 1,000 MG/100 ML BAG 400 MG IVPB (09:27)
[2022-06-16 11:56] VITALS: BP 139/86; PULSE 92; RESP 16; O2SAT 97
== END 2022-06-16 11:57 | disposition home or self-care (01) ==
PROVIDERS: Emergency Provider Emergency Medicine; PCP Physician Assistant
DX: G40.909 Epilepsy, unspecified, not intractable, without status epilepticus (principal); Z91.14 Patient's other noncompliance with medication regimen; J45.909 Unspecified asthma, uncomplicated; R94.31 Abnormal electrocardiogram [ECG] [EKG]; I49.1 Atrial premature depolarization; I44.4 Left anterior fascicular block
CPT/HCPCS: 36415; 70450; 71045; 80053; 85025; 93005; 96365; 99284; J1953

== ENCOUNTER 2024-01-03 06:42 | Emergency (ER) | payer MEDICARE, MEDICAID, SELFPAY ==
--- NOTE | ~2024-01-03 | CT_ITS ---
Non-contrast Head CT History: Seizure COMPARISON: 06/16/2022 Technique: Axial non-contrast imaging of the brain was performed. Dose reduction technique was used on this scan by utilizing automated exposure control and iterative reconstruction technique. The dose -length product (DLP) was 605.33 mGy-cm. Findings: There is no evidence of intracranial hemorrhage, mass lesion, or acute infarct. Brain par enchyma appears normal. The ventricles and subarachnoid spaces are normal in size. The calvarium ap pears normal. The visualized paranasal sinuses and mastoid air cells are clear. Partially visualized ossified structure posterior to the odontoid process with probable mild to moder ate spinal canal stenosis at the C2 level. Impression: No significant intracranial abnormality seen. Partially visualized ossified structure posterior to the odontoid process is probable mild to moderat e spinal canal stenosis the C2 level. Consider dedicated cervical spine CT and/or MR to further evalu ate, as indicated. Reviewed, dictated and finalized at [facility]. Impression: No significant intracranial abnormality seen. Partially visualized ossified structure posterior to the odontoid process is pr obable mild to moderate spinal canal stenosis the C2 level. Consider dedicated cervical spine CT and/or MR to further evaluate, as indicated.
[2024-01-03 06:40] VITALS: BP 115/83; PULSE 83; RESP 12; TEMP 36.5; O2SAT 100
[2024-01-03 07:15] VITALS: PULSE 67
[2024-01-03 07:26] VITALS: O2SAT 99
--- NOTE | 2024-01-03 08:06 | ED.SEIZURE ---
HPI - Seizure General Chief Complaint: Seizure Stated Complaint: Seizure Time Seen by Provider: 01/03/24 07:20 History of Present Illness HPI Narrative: Pt has a history pf a seizure disorder and takes vimpat and keppra. Pt has not missed any doses. Pt had another seizure about 6 weeks ago. Pt says she had a seizure at work and fell and hit chin. Pt has mild LLANOS. Pt denies other injury. Pt has a neurologist at [facility]. Related Data Home Medications Medication Instructions Recorded Confirmed citalopram 10 mg tablet 10 mg PO DAILY 03/16/21 lacosamide 200 mg tablet (Vimpat) mg 01/19/22 levetiracetam 500 mg tablet tablet PO 01/19/22 Allergies Allergy/AdvReac Type Severity Reaction Status Date / Time No Known Allergies Allergy Verified 01/03/24 07:20 Review of Systems Review of Systems: All systems reviewed & are unremarkable except as noted in HPI and below PMFSH Past Medical History Medical History Asthma Seizure Surgical History Surgical History H/O tubal ligation Family History Family History Mother Hypertension Father Hypertension Social History Social History Social History: the patient lives with her fiance. She does not have a durable power assistant attorney general at this time. She has 2 children. She wishes to be a full code. 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 No illicit drugs. Smoking status: Never smoker Alcohol intake: current Drinks per week: 1 Substance use: current Substance use type: marijuana Last use: 06/13/2020 Living arrangements: with family Gender identity (if verbalized by the patient): Female Spiritual care concerns: No Exam Const: General: healthy appearing Nutritional Appearance: well nourished Orientation/consciousness: patient oriented x3 Limitations: no limitations HENMT: Head: normal to inspection Mouth: Yes Normal oral and palatal mucosa present and Yes lip normal (lower lip swollen, small bite on tongue) Eyes: Pupils: Equal, round and reactive pupils present EOM: EOMs intact bilaterally Neck: Neck: normal visual inspection and no meningeal signs Resp: Effort & Inspection: normal respiratory effort Auscultation: clear to auscultation bilaterally Cardio: Rate: regular rate GI: GI Palp: Yes Soft to palpation and No Tenderness to palpation present (GI) Auscultation: normal bowel sounds Skin: General skin exam: normal color Rashes: no rashes Wounds: no wounds Neuro: General: patient oriented x3 and moves all extremities Speech: normal speech Extrem: General: normal to inspection and no clubbing, cyanosis or edema Psych: Appearance: grossly normal Mental Status: mental status grossly normal Affect: normal affect Attitude: cooperative Course Vital Signs Vital signs: Vital Signs Temperature 97.7 F 01/03/24 06:40 Pulse Rate 83 01/03/24 06:40 Respiratory Rate 12 01/03/24 06:40 Blood Pressure 115/83 01/03/24 06:40 Pulse Oximetry 100 01/03/24 06:40 Oxygen Delivery Room Air 01/03/24 06:40 Temperature 97.7 F 01/03/24 06:40 Pulse Rate 69 01/03/24 08:15 Respiratory Rate 16 01/03/24 08:15 Blood Pressure 107/75 01/03/24 08:15 Pulse Oximetry 100 01/03/24 08:15 Oxygen Delivery Room Air 01/03/24 08:16 MDM - Seizure MDM Narrative Medical decision making narrative: pt has seizure history and takes meds. Pt had seizure and fell striking chin. Pt has mild LLANOS. will get CT brain to rule out injury and labs to check lytes and observe. pt will call her neurologist today to ask about medication adjustments. CT brain and labs all reviewd and normal. Pt wants to go home and will call neurologist
[2024-01-03 08:15] VITALS: BP 107/75; PULSE 69; RESP 16; O2SAT 100
[2024-01-03 08:19] LABS: Basophils Percent Auto 0.3 % (0.2-1.2); Eosinophils Percent Auto 0.5 % (0-4.4); Hematocrit 37.5 % (37.0-47.0); Hemoglobin 12.3 g/dL (12.0-15.0); Immature Granulocyte Absolute 0.02 K/mm3 (0.00-0.031); Immature Granulocyte Percent A 0.3 % (0-0.5); Lymphocytes Absolute Auto 1.52 K/mm3 (0.9-3.2); Lymphocytes Percent Auto 19.2 % (18.3-44.2); Mean Corpuscular HGB Conc 32.8 g/dl (32-36); Mean Corpuscular Hemoglobin 31.7 pg (26-34); Mean Corpuscular Volume 96.6 fl (80-100); Mean Platelet Volume 10.3 fl (7.4-10.4); Monocytes Absolute Auto 0.7 K/mm3 (0.1-0.6); Monocytes Percent Auto 9.3 % (2.6-8.5); Neutrophils Absolute Auto 5.6 K/mm3 (1.3-6.7); Neutrophils Percent Auto 70.4 % (45.5-73.1); Platelet Count Result 186 k/mm3 (150-375); Red Blood Count 3.88 M/mm3 (4.2-5.4); White Blood Count 7.9 K/mm3 (4.5-10.0)
[2024-01-03 08:31] LABS: Alanine Aminotransferase 15 U/L (6-35); Albumin Level 4.1 g/dL (3.5-5.1); Alkaline Phosphatase 38 U/L (38-126); Anion Gap 2 mmol/L (4-12); Aspartate Amino Transferase 28 U/L (14-36); Bilirubin,Total 0.3 mg/dL (0.2-1.3); Blood Urea Nitrogen 13 mg/dL (7-17); Calcium 8.9 mg/dL (8.4-10.2); Carbon Dioxide 30 mmol/L (22-30); Chloride 105 mmol/L (98-107); Estimated Glomerular Filt Rate > 60; Glucose 98 mg/dL (65-110); Potassium 3.8 mmol/L (3.4-5.0); Sodium 137 mmol/L (137-145)
== END 2024-01-03 08:54 | disposition home or self-care (01) ==
PROVIDERS: Emergency Provider Emergency Medicine; PCP Physician Assistant
DX: G40.909 Epilepsy, unspecified, not intractable, without status epilepticus (principal); J45.909 Unspecified asthma, uncomplicated; Z79.899 Other long term (current) drug therapy
CPT/HCPCS: 36415; 70450; 80053; 85025; 99284

== ENCOUNTER 2025-01-15 07:56 | Emergency (ER) | payer MEDICARE, SELFPAY ==
--- OUTSIDE RECORDS SUMMARY | 2025-01-15 07:59 | XMS_ITS | Clinical Summary ---
Author Organization [facility] Address [facility] [place] [address] Care Team Providers Care Relocation Services Specialist Name Role Phone Laurie Garcia PA-C Primary Care Provider [phone] Allergies No known active allergies Medications albuterol sulfate HFA 108 (90 Base) MCG/ACT inhaler Inhale 2 puffs into the lungs every 4 (four) hours as needed for Wheezing or Shortness of breath. Active ADVAIR HFA 230-21 MCG/ACT inhaler 1 Active ibuprofen (MOTRIN) 600 MG tablet Take 1 tablet (600 mg total) by mouth every 6 (six) hours as needed. 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) 08/25/2020 Resolved Problems Problem Noted Date Diagnosed Date Resolved Date Change in bowel habit 01/18/20222023 Overview (01/18/2022): Added automatically from request for surgery [id number] Blood in stool 01/18/2022 07/09/2024 Overview (01/18/2022): Added automatically from request for surgery [id number] Weight loss 01/18/2022 07/09/2024 Overview (01/18/2022): Added automatically from request for surgery [id number] Diarrhea, unspecified type 01/18/2022 1 Overview (01/18/2022): Added automatically from request for surgery [id number] Encounters Date Type Department Care Team Description 11/22/2024 8:00 AM CDT Office Visit [facility] - [address], [address] [place] [address] Chinedu Zuniga MD Follow Up (Localization-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,//Cervical myelopathy/) 11/22/2024 Travel 10/23/2024 Telephone [facility] - [address] [place] [address] Chinedu Zuniga MD Medication from Last 3 Months Family History Medical History Relation Comments kidney issues Father Diabetes Maternal Grandfather Diabetes Maternal Grandmother Hypertension Mother Diabetes Paternal Grandfather Diabetes Paternal Grandmother Relation Status Comments Father Alive Maternal Grandfather Maternal Grandmother Mother Alive Paternal Grandfather Paternal Grandmother Social History Tobacco Use Types Packs/Day Years Used Date Smoking Tobacco: Never Passive Smoke Exposure: Never Smokeless Tobacco: Never Tobacco Cessation:Counseling Given: Yes Alcohol Use Standard Drinks/Week Comments Not Currently 0 (1 standard drink = 0.6 oz pur e alcohol) Rarely PHQ-2 Answer Date Recorded Patient Health Questionnaire-2 Score 2 11/22/2024 Comments No Sex and Gender Information Value Date Recorded Sex Assigned at Not on file Legal 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 Gender Identity Not on file Sexual Orientation Not on file Last Filed Vital Signs Vital Sign Reading Time Taken Comments Blood Pressure 124/73 11/22/2024 8:03 AM CDT Pulse 69 11/22/2024 8:03 AM CDT Temperature 37.7 C (99.8 F) 07/09/2024 7:48 AM TIME 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 CLERK Respiratory Rate 12 11/22/2024 8:03 AM CDT Oxygen Saturation 100% 11/22/2024 8:03 AM CDT Inhaled Oxygen Concentration - - Weight 91.6 kg (202 lb) 11/22/2024 8:03 AM CDT Height 158.8 cm (5' 2.5) 11/22/2024 8:03 AM CDT Body Mass Index 36.36 11/22/2024 8:03 AM CDT Plan of Treatment Upcoming Encounters Date Type Department Care Team (Late st Contact Info) Description 01/23/2025 8:20 AM CDT Office Visit [facility] - [address], [address] [place] [phone] Frederick Valentin MD [address] [place] [id number] 04/28/2025 7:20 AM CDT Office Visit [facility] - [address], [address] [place] [phone] Chinedu Zuniga MD [address] [place] [id number] Health Maintenance Due Date Last Done Comments Annual Physical 01/19/1975 Hepatitis C 01/19/1990 DTaP, Tdap and Td Vaccines ( 1 - Tdap) 01/19/1991 Hepatitis B Vaccines (1 of 3 - 19+ 3-dose series) 01/19/1991 Pneumococcal Vaccine: 50+ Years (1 of 2 - PCV) 01/19/1991 Mammogram Screening 2012 Zoster Vaccines (1 of 2) 01/19/2022 Cervical Cancer Screening Pa p Smear (Age 30 to 64) Every 3 Years 02/06/2024 02/05/2021 COVID-19 Vaccine (1 - 2023-2 5 season) 2024 Cervical Cancer Screening Pa p with HPV Testing (Age 30 to 64) Every 5 Years 02/05/2026 02/05/2021 Cervical Cancer Screening wi th HPV 02/05/2026 Colorectal Cancer Screening Colonoscopy (10 Years) 01/28/2032 01/27/2022, 01/27/2022 PHQ-2 (Physician [place]) Completed 11/22/2024 Meningococcal B Vaccine Aged Out No l onger eligible based on patient's age to complete this topic Meningococcal Vaccine Aged Out No ava leonid eligible based on patient's age to complete this topic RSV Immunizations Under 20 Months Aged Out No longer eligible b ased on patient's age to complete this topic Goals Goal Patient Goal Type Associated Problems Recent Progress Patient-Stated? 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
--- OUTSIDE RECORDS SUMMARY | 2025-01-15 07:59 | XMS_ITS | Data Portability ---
Author Organization [facility] [place] Address [address] [place] [address] Assessment Encounter Date Assessment Date Assessment LastModified by Organization Details LastModified Time 01/07/2021 01/07/2021 Annual gynecological exam performed. Patient will come back in a year unless there are new symptoms. Not available 01/05/2021 15:48:33 Plan of Treatment Reminders Order Date Submit Date Provider Last Modified By Organization Details Last Modified Time Details Appointments None recorded. Lab lh + FSH, serum 2020 021 [facility] (Lab), [address], [place], [address], 03:15:48 estradiol, serum 2020 021 [facility] (Lab), [address], [place], [address], 03:15:47 CBC w/ auto diff 2020 021 [facility] (Lab), [address] , [place], [address], 03:15:46 beta-HCG, quantitativ e, serum or plasma [address] (Lab), [address], [place], [address], 13:35:52 CMP, serum or plasma 2020 021 [facility] (Lab), [address], [place], [address], 03:15:46 prolactin, serum 2020 021 [facility] (Lab), [address], [place], [address], 03:15:47 Referral urologist referral 2020 021 CASSIE Nahum Caceres MD, [address] [facility] [address], [place], [address], 05:01:10 counseling referral 2020 CASSIE Not available 05:01:10 Procedures None recorded. Surgeries None recorded. Imaging None recorded. Medication Orders None recorded. Patient TargetsNo targets recorded. Patient InstructionsNo instructions recorded. 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 Referring Physician: iMldred Flower, MANAGING MEMBER, Encounter Date: 01/07/2021 Urologist Referral for Mixed urinary incontinence Referring Physician: Mildred Flower MANAGING MEMBER, Encounter Date: 01/07/2021 Results Created Date Observation Date Name Description Value Unit Range Abnormal Flag Note LastModifiedBy Organization Detail LastModifiedTime 01/08/2001/07/2021 CBC W/DIF F WBC 6.7 10'3/ uL 3.6-10 .2 Not Available [facility] (Lab) [address] , [place], [address], 01/08/2021 03:15:46 01/08/2001/07/2021 CBC W/DIF F RBC 4.70 10'6/ uL (based on docume nted legal sex) 4.10-5 .30 Not Available [facility] (Lab) [address], [place], [address], 01/08/2021 03:15:46 01/08/20 21 01/07/2021 CBC W/DIF F HGB 14.5 g/dL (based on docume nted legal sex) 11.9-1 5.8 Not Available [facility] (Lab) [address], [place], [address], 01/08/2021 03:15:46 01/08/20 21 01/07/2021 CBC W/DIF F HCT 46.9 % (based on docume nted legal sex) 37.4-4 8.3 Not Available [facility] (Lab) [address], [place], [address], 01/08/2021 03:15:46 01/08/20 21 01/07/2021 CBC W/DIF F MCV 100.0 fL 82.0-9 9.0 high Not Available [facility] (Lab) [address], [place], [address], 01/08/2021 03:15:46 01/08/20 21 01/07/2021 CBC W/DIF F MCH 31.0 pg 27.0-3 3.0 Not Available [facility] (Lab) [address], [place], [address], 01/08/2021 03:15:46 01/08/20 21 01/07/2021 CBC W/DIF F MCHC 31.0 g/dL 32.0-3 6.0 low Not Available [facility] (Lab) [address] [place], [address], 01/08/2021 03:15:46 01/08/20 21 01/07/2021 CBC W/DIF F RDW 13.0 % 11.0-1 5.0 Not Available [facility] (Lab) [address], [place], [address], 01/08/2021 03:15:46 01/08/20 21 01/07/2021 CBC W/DIF F plt 180 10'3/ uL 150-45 0 Not Available [facility] (Lab) [address], [place], [address], 01/08/2021 03:15:46 01/08/20 21 01/07/2021 CBC W/DIF F MPV 11.4 fL Not Available [facility] (Lab) [address] [facility], [place], [address], 01/08/2021 03:15:46 01/08/20 21 01/07/2021 CBC W/DIF F NRBC's 0.00 % 0 Not Available [facility] (Lab) [address], [place], [address], 01/08/2021 03:15:46 01/08/20 21 01/07/2021 CBC W/DIF F absolute NRBCs 0.0 10'3/ uL 0 Not Available [facility] (Lab) [address] [facility], [place], [address], 01/08/2021 03:15:46 01/08/20 21 01/07/2021 CBC W/DIF F neutrophils 58.0 % 37.0-7 2.0 Not Available [facility] (Lab) [address] [facility], [place], [address], 01/08/2021 03:15:46 01/08/20 21 01/07/2021 CBC W/DIF F lymphocytes 31.0 % 16.0-4 8.0 Not Available [facility] (Lab) [address] [facility], [place], [address], 01/08/2021 03:15:46 01/08/20 21 01/07/2021 CBC W/DIF F monocytes 10.0 % 4.0-14 .0 Not Available [facility] (Lab) [address] [place], [address], 01/08/2021 03:15:46 01/08/20 21 01/07/2021 CBC W/DIF F eosinophils 1.0 % 0.0-9. 0 Not Available [facility] (Lab) [address] [facility], [place], [address], 01/08/2021 03:15:46 01/08/20 21 01/07/2021 CBC W/DIF F basophils 0.0 % 0.0-2. 0 Not Available [facility] (Lab) [address] [facility], [place], [address], 01/08/2021 03:15:46 01/08/20 21 01/07/2021 CBC W/DIF F immature granulocytes 0.0 % no define d refere nce range Not Available [facility] (Lab) [address] [facility], [place], [address], 01/08/2021 03:15:46 01/08/20 21 01/07/2021 CBC W/DIF F absolute neutrophils 3.9 10'3/ uL 1.1-6. 0 Not Available [facility] (Lab) [address] [facility], [place], [address], 01/08/2021 03:15:46 01/08/20 21 01/07/2021 CBC W/DIF F absolute lymphocytes 2.1 10'3/ uL 0.7-3. 4 Not Available [facility] (Lab) [address] [facility], [place], [address], 01/08/2021 03:15:46 01/08/20 21 01/07/2021 CBC W/DIF F absolute monocytes 0.7 10'3/ uL 0.3-1. 0 Not Available [facility] (Lab) [address] [facility], [place], [address], 01/08/2021 03:15:46 01/08/20 21 01/07/2021 CBC W/DIF F absolute eosinophils 0.1 10'3/ uL 0.0-0. 6 Not Available [facility] (Lab) [address] [place], [address], 01/08/2021 03:15:46 01/08/20 21 01/07/2021 CBC W/DIF F absolute basophils 0.0 10'3/ uL 0.0-0. 1 Not Available [facility] (Lab) [address] [facility], [place], [address], 01/08/2021 03:15:46 01/08/20 21 01/07/2021 CBC W/DIF F absolute immature granulocytes 0.00 10'3/ uL 0.00-0 .10 021 1:14 AM: P indic ates parti al resul ts on a panel have been relea sed. Addit ional resul ts will follo w. 021 1:14 AM: This resul t has been final verif ied. No addit ional or walter ed resul ts are expec sola. Not Available [facility] (Lab) [address] [facility], [place], [address], 01/08/2021 03:15:46 01/08/20 21 01/07/2021 CMP WITH BUN/C REAT RATIO sodium 140 mmol/ L 136-14 5 Not Available [facility] (Lab) [address] [facility], [place], [address], 01/08/2021 03:15:46 01/08/20 21 01/07/2021 CMP WITH BUN/C REAT RATIO potassium 4.2 mmol/ L 3.5-5. 1 Not Available [facility] (Lab) [address] [place], [address], 01/08/2021 03:15:46 01/08/20 21 01/07/2021 CMP WITH BUN/C REAT RATIO chloride 105 mmol/ L 98-107 Not Available [facility] (Lab) [address] [facility], [place], [address], 01/08/2021 03:15:46 01/08/20 21 01/07/2021 CMP WITH BUN/C REAT RATIO carbon dioxide 28 mmol/ L 21-31 Not Available [facility] (Lab) [address] [place], [address], 01/08/2021 03:15:46 01/08/20 21 01/07/2021 CMP WITH BUN/C REAT RATIO anion gap 7 mmol/ L 4-13 Not Available [facility] (Lab) [address] [facility], [place], [address], 01/08/2021 03:15:46 01/08/20 21 01/07/2021 CMP WITH BUN/C REAT RATIO blood urea nitrogen 11 mg/dL 7-25 Not Available [facility] (Lab) [address] [facility], [place], [address], 01/08/2021 03:15:46 01/08/20 21 01/07/2021 CMP WITH BUN/C REAT RATIO creatinine 0.86 mg/dL 0.60-1 .30 Not Available [facility] (Lab) [address] [facility], [place], [address], 01/08/2021 03:15:46 01/08/20 21 01/07/2021 CMP WITH BUN/C REAT RATIO BUN/creatini ne ratio 12.8 . 10.0-2 2.0 Not Available [facility] (Lab) [address] [facility], [place], [address], 01/08/2021 03:15:46 01/08/20 21 01/07/2021 CMP WITH BUN/C REAT RATIO GFR () 85 mL/mi n/1.7 3_m2 60-300 Not Available [facility] (Lab) [address] [place], [address], 01/08/2021 03:15:46 01/08/20 21 01/07/2021 CMP WITH BUN/C REAT RATIO GFR (others) 70 mL/mi n/1.7 3_m2 60-300 Not Available [facility] (Lab) [address] [facility], [place], [address], 01/08/2021 03:15:46 01/08/20 21 01/07/2021 CMP WITH BUN/C REAT RATIO calcium 9.6 mg/dL 8.6-10 .2 Not Available [facility] (Lab) [address] [facility], [place], [address], 01/08/2021 03:15:46 01/08/20 21 01/07/2021 CMP WITH BUN/C REAT RATIO glucose 77 mg/dL 70-100 Not Available [facility] (Lab) [address] [facility], [place], [address], 01/08/2021 03:15:46 01/08/20 21 01/07/2021 CMP WITH BUN/C REAT RATIO protein, total 7.0 g/dL 6.4-8. 3 Not Available [facility] (Lab) [address] [facility], [place], [address], 01/08/2021 03:15:46 01/08/20 21 01/07/2021 CMP WITH BUN/C REAT RATIO albumin 4.5 g/dL 3.5-5. 0 Not Available [facility] (Lab) [address] [facility], [place], [address], 01/08/2021 03:15:46 01/08/20 21 01/07/2021 CMP WITH BUN/C REAT RATIO ALT 11 units /L 9-43 Not Available [facility] (Lab) [address] [facility], [place], [address], 01/08/2021 03:15:46 01/08/20 21 01/07/2021 CMP WITH BUN/C REAT RATIO alkaline phosphatase 29 units /L 34-104 low Not Available [facility] (Lab) [address] [facility], [place], [address], 01/08/2021 03:15:46 01/08/20 21 01/07/2021 CMP WITH BUN/C REAT RATIO AST 13 units /L 13-39 Not Available [facility] (Lab) [address] [place], [address], 01/08/2021 03:15:46 01/08/20 21 01/07/2021 CMP WITH BUN/C REAT RATIO bilirubin, total 0.3 mg/dL 0.2-1. 2 Not Available [facility] (Lab) [address] [facility], [place], [address], 01/08/2021 03:15:46 01/08/20 21 01/07/2021 ESTRA DIOL estradiol <5.0 pg/mL This assay was perfo rmed using [employer] reage nts and test kits. Value s obtai adan with other assay metho ds or kits canno t be used [facility] . Femal e Estra diol Range s: Folli cular phase 12.4- 233 pg/mL Ovula tion phase 41.0- 398 pg/mL Lutea l phase 22.3- 341 pg/mL Postm enopa usal< 5-138 pg/mL Healt hy Pregn ant Women 1st Trime ster1 54-32 43 pg/mL 2nd Trime ster1 561-2 1280 pg/mL 3rd Trime ster8 525-> 68549 pg/mL Not Available [facility] (Lab) [address] [facility], [place], [address], 01/08/2021 03:15:47 01/08/2001/07/2021 PROLA CTIN prolactin, total 4.52 NG/mL 4.79-2 3.30 low This assay was perfo rmed using [employer] reage nts and test kits. Value s obtai adan with other assay metho ds or kits canno t be used inter walter eay . Not Available [facility] (Lab) [address] [facility], [place], [address], 01/08/2021 03:15:47 01/08/20 21 01/07/2021 FSH / LH FSH 93.9 mIU/m L Not Available [facility] (Lab) [address] [facility], [place], [address], 01/08/2021 03:15:47 01/08/20 21 01/07/2021 FSH / LH LH 38.9 mIU/m L This assay was perfo rmed using [employer] reage nts and test kits. Value s obtai adan with other assay metho ds or kits canno t be used inter walter eably . 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 Trich omona s vagin carla prese nt. Elect ricki bloom by Selena lantigua, [place] , [place] on 021 at 1:41 PM ----- ----- ----- ----- ----- ----- ----- ----- ----- ----- ----- ----- ----- ----- ----- ----- ----- ---- HPV RESUL TS: HPV mRNA E6/E7 : No HPV mRNA Detec sola NOTE: This high risk HPV mRNA assay detec ts fourt een high- risk HPV types (16, 18, 31, 33, 35, 39, 45, 51, 52, 56, 58, 59, 66, 68) witho ut diffe renti ation . CHART ABLE COMME NT: Note: This speci men was revie wed by a Cytot echno logis t and/o r Patho logis t (as indic ated in this repor t) after evalu ation using the Thinp rep Imagi ng Syste m. CLINI DAVIAN INFOR MATIO N: Menst rual Statu s: LMP (if appli cable ): Clini davian Histo ry/Pr eviou s Pap: Type of Neopl angelita (if appli cable ): Other Histo ry: Hormo edith (if appli cable ): PAP EDUCA ABNER L NOTE: The Pap Test is a scree judi test with an inher ent false negat tim rate. Liqui d-bas e sampl ing may decre ase, but will not elimi kody, false negat tim resul ts. A negat tim resul t does not precl ude the prese nce and/o r devel opmen t of disea se, since the prese nce of abnor mal cells in the sampl e depen ds on the locat ion of the lesio n and sampl ing techn ique. Riri nued regul ar scree judi is the best metho d of cance r preve ntion . If repor sola cytol ogic findi ng do not corre late with physi davian and/o r histo rical findi ngs, furth er inves tigat ion is recom claudia d, as clini wayne carrero nted. Not Available [facility] (Lab) [address], [place], [address], 01/11/2021 14:44:30 02/06/20 21 02/05/2021 CT/GC AND TRICH OMONA S VAGIN CARLA (RRNA ), URINE chlamydia trachomatis, PCR Negati ve negati ve Not Available [facility] (Lab) [address] [facility], [place], [address], 02/06/2021 12:11:59 02/06/20 21 02/05/2021 CT/GC AND TRICH OMONA S VAGIN CARLA (RRNA ), URINE neisseria gonorrhoeae, PCR Negati ve negati ve Not Available [facility] (Lab) [address] [facility], [place], [address], 02/06/2021 12:11:59 02/06/20 21 02/05/2021 CT/GC AND TRICH OMONA S VAGIN CARLA (RRNA ), URINE trichomonas vaginalis ribosomal RNA (rrna) Negati ve negati ve Not Available [facility] (Lab) [address] [facility], [place], [address], 02/06/2021 12:11:59 Result Notes None recorded. Procedures Surgical History Date Name Laterality Status Provider Name and Address Organization Details Recorded Time 1 Date of Last Pap Smear completed [facility] 02/05/2021 11:38:42 1 Date of Last Mammogram completed [facility] 01/07/2021 13:11:16 Imaging Results None recorded. Procedure Notes None recorded. Medical Equipment None Reported. Allergies No known drug allergies Medications Name Sig Start Date Stop Date Status Note LastModified by Organization Details LastModified Time metronidazol e 500 mg tablet TAKE 4 TABLETS BY MOUTH A ONE TIME DOSE 02/05 completed Not Available Not Available Not Available Ventolin HFA 90 mcg/actuatio n aerosol inhaler INHALE 2 PUFFS BY MOUTH EVERY 4 TO 6 HOURS NEEDED active Not Available Not Available No t Available Advair HFA 230 mcg-21 mcg/actuatio n aerosol inhaler INHALE 2 PUFFS BY MOUTH TWICE DAILY active Not Available Not Available No t Available Vimpat 200 mg tablet TAKE 1 TABLET BY MOUTH TWICE DAILY active Not Available Not Available No t Available Vimpat 100 mg tablet TAKE 1 TABLET BY MOUTH IN THE MORNING AND 2 IN THE EVENING 02/05 completed Not Available Not Available Not Available Vitals Date Recorded Body height Body mass index (BMI) Body weight Systolic And Diastolic Provider Name and Address Organization Details Last Updated DateTime 01/07/2021 160.02 cm 32.2 kg/m2 94251.81 g 113/76 mm[Hg] Mildred Flower [facility] [address], [place], [address], [facility] 01/07/2021 14:58:27 Date Recorded Systolic And Diastolic Provider Name and Address Organization Details Last Updated DateTime 02/05/2021 122/80 mm[Hg] Mildred Flower [facility] [address], [place], [address], [facility] 02/05/2021 12:15:27 Date Recorded Body height Body mass index (BMI) Body weight Provider Name and Address Organization Details Last Updated DateTime 02/05/2021 160.02 cm 31.5 kg/m2 65341.44 g Jenn Chen [facility] 02/05/2021 11:48:49 Social History Question Answer Notes LastModified by Organizat ion Details LastModified Time Tobacco Smoking Status Current Some Day Smoker Jenn Chen [facility] 01/07/2021 13:13:10 Are You Blind Or Do You Have Difficulty Seeing? No Information not available 01/07/2021 What Is Your Level Of Caffeine Consumption? Occasional Information not available 01/07/2021 Are You Deaf Or Do You Have Serious Difficulty Hearing? No Information not available 01/07/2021 What Type Of Diet Are You Following? REGULAR Information not available 01/07/2021 Which Illicit Or Recreational Drugs Have You Used? Marijuana Information not available 01/07/2021 Are You Sexually Active? Yes Information not available 01/07/2021 Do You Have Smoke And Carbon Monoxide Detectors In Your Home? Yes Information not available 01/07/2021 Do You Use Sunscreen Routinely? Yes Information not available 01/07/2021 Sex: Unknown Functional Status Question Answer Note LastModified by Organizat ion Details LastModified Time Do you use any illicit or recreational drugs? Yes Information not available 01/07/2021 What is your level of alcohol consumption? Occasional Information not available 01/07/2021 Are you able to walk? YESWOREST Information not available 01/07/2021 What is your exercise level? Occasional Information not available 01/07/2021 Mental Status Question Answer Note LastModified by Organization D etails LastModified Time Do you feel stressed (tense, restless, nervous, or anxious, or unable to sleep at night)? [id number] Information not available 01/07/2021 Family History Relationship Description Onset Age of this Age Resolved Age Notes LastModified by Organization Details LastModified Time Mother Asthma Not available 07/2020 13:12:01 Mother Diabetes mellitus Not available 2020 13:12:08 Mother Hypertensive disorder Not available 2020 13:12:15 Mother Cyst of ovary Not available 2020 13:12:28 Father Hypertensive disorder Not available 2020 13:12:36 Medical History Condition Response Allergies (Food, seasonal, environmental ) N Other Y Blood Transfusion N Drug/Latex Allergies/Reactions N Breast Cancer N Dermatologic Disorders N Lung Disease N Defects or Inherited Disease N Breast Problem N Gestational Diabetes N Hematologic disorders N Anesthesia Complications N History of STI N Deep Vein Thrombosis N Polycystic ovary syndrome N Anxiety Disorder N Autoimmune disease N Arthritis N Infertility N Polyps N Acid Reflux (GERD) N History of abnormal pap N Cancer N Stroke N Varicosities N Neurologic/Epilepsy N Endometriosis N High Cholesterol N Headaches N Fibromyalgia N Kidney Disease N Heart Problems N Kidney or Bladder Problems N Thyroid Problems N GI Problems N Eating Disorder N Anemia N Art (IVF or FET) N Psychiatric Illness N Ovarian Cancer N Diabetes N Pulmonary (TB, Asthma) N Hepatitis/Liver Disease N No Past Medical History N Eczema N Urinary Tract Infection N Abuse/Domestic Violence N Asthma Y Trauma/Violence N Depression/ depression N Heart Disease N Pre-Eclampsia N Hypertension N Osteoporosis N Thrombophilias N Gynecological History Statement/Question Response If Post Menopausal, Age at Menopause 37 Date of Last Mammogram 07/10/2020 Sexually Active? Y STIs/STDs Y Menses Monthly N Date of Last Pap Smear 01/07/2021 Sexual Problems? N Current Control Method Menopause Desired Control Method None Obstetrics History GPAL:G 0 P 0 0 0 0 Type Value Living 0 Total 0 Past Encounters Encounter ID Performer Location Encounter Start Date Encounter Closed Date Diagnosis/Indication Diagnosis SNOMED-CT Code Diagnosis ICD10 Code Diagnosis Note [id number] Mildred Flower , [facility] [address] [address] 01/07/2021 12:47:46 01/07/2021 15:02:21 Gynecologic examination 93518818 Z01.419 Suggested Calcium with Vitamin D 1200-1500m g daily. Patient advised to get an annual flu shot in the fall and she could obtain at [facility] or [facility] care clinic. Also to obtain TDap vaccinatio n if you have not had one in the last 10 years. Recommend yearly mammograms . Encouraged monthly self breast exams. Encourage safe sexual practices, to use condoms and limit partners if not already in a monogamous relationsh ip. Engage in daily exercise of low impact aerobic exercise 45-60 minutes 4-5 times weekly. Avoid tobacco and illicit drugs as well as using moderation with alcohol intake less than 1-2 8 oz beverages daily. This lifestyle behavior pattern will lead to less health conditions and longer life span. If BMI greater than 25 weight watchers or dietary consult advised. All questions have been answered. Patient appears to understand informatio n, but if you have any questions please call or respond to this email. 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 Mixed urin charlee incontinence [id number] N39.46 Requests referral for incontinen ce.Seems to be more OAB than RADHA.Hx of epilepsy. [id number] Mildred Flower , [facility] [address] [address] 02/05/2021 11:28:43 02/05/2021 13:32:15 Venereal disease screening [id number] Z11.3 Here for OLMAN from +Trich on Pap/hpv testingHer partner was tested & she reports his was a neg value.She has not been with anyone else.We discussed the rate of false positivesS he has already taken the medication & abstained until we get the results back from OLMAN>She has no sx's and did not prior to this. All questions answered & understand ing verbalized . Time spent in visit is a total of 15 mins with at least 50% of visit consisting of counseling and review of plan of care.Addit ional precaution charlee measures were taken to minimize potential exposure to the Covid-19 virus during this patient s visit, including available hand yacht builder upon arrive, temperatur e check and being asked a series of screening questions. All staff wore face coverings during this encounter, as well as provided additional cleaning and sanitizing of all surfaces, including countertop s, pens, chairs, door handles, light switches, etc, prior to and following the patient s visit. Health Concerns Section Related Observation LastModified by Organization Detai ls LastModified Time None Recorded Concern Status LastModified by Organization Details LastModified Time None Recorded Advance Directives Directive None Recorded Payers Insurance Date Sequence Insurance Name Policy Number Policy Aquino Covered Member ID Aquino Member ID Guarantor Name 02/04/2021 1 [place] Mili Valle [id number] Mili Valle 04/06/2021 2 [place] [employer] Mili Valle [id number] Mili Valle Notes Date Note Type Note Provider Name and Address Organization Details Recorded Time 01/07/2021 text/html Annual GYNReport ed bypatient.Menstrua l cycle:Amenorrheic since age 37yo but has never had blood work to ensure menopause or POF is the cause of this. Patient states she assumed she just started menopause early. Urinary symptoms:No hematuria; No incontinence Vulva:No genital lesion Vagina:Normal vaginal discharge Breast:No breast pain; No breast lump; No nipple discharge Current Contraception:Herkimer gamous relationship Sexual complaints:No sexual complaints; No pain during intercourse; Normal libido Menopausal Symptoms:No menopausal symptoms; Normal vaginal lubrication Psychological symptoms:No depression; No anxiety; No PMDD Preventive measures:Encourage self breast examination; Encourage regular exercise; Encourage no tobacco use; Encourage regular mammograms starting age 40; Followed with Q3 year pap smear and high risk HPV typing; Mammogram performed within the past year; Up to date on colonoscopy screening Mildred Flower [facility] [address], [place], [address], [facility] 01/07/2021 15:02:19 02/05/2021 text/html Here for OLMAN. Mildred Flower [facility] [address], [place], [address], [facility] 02/05/2021 12:17:38 OBGyn Episode No OBEpisode recorded.
--- OUTSIDE RECORDS SUMMARY | 2025-01-15 07:59 | XMS_ITS | Encounter Summary ---
Author Organization [facility] Address [address] [place] [id number] Care Team Providers Care Family Resource Management Professor Name Role Phone Laurie Garcia PA-C Primary Care Provider [phone] Encounter Details Date Type Department Care Team (Late st Contact Info) Description 01/19/2022 Prep for Procedure [facility] [place], [place] [id number] Brent Akhtar MD [address] [id number] Social History Tobacco Use Types Packs/Day Years Used Date Smoking Tobacco: Never Smokeless Tobacco: Never Alcohol Use Standard Drinks/Week Comments Not Currently 0 (1 standard drink = 0.6 oz pur e alcohol) Rarely PHQ-2 Answer Date Recorded PHQ-2 Score - If the patient scores above 3, please move on to questions 3-9 6 01/12/2022 Comments Unknown Sex and Gender Information Value Date Recorded Sex Assigned at Not on file Legal Sex Female 6:28 PM ACADEMIC VICE PRESIDENT Gender Identity Not on file Sexual Orientation Not on file COVID-19 Exposure Response Date Recorded In the last 10 days, have yo u been in contact with someone who was confirmed or suspected to have Coronavirus/COVID-19? Yes 01/19/2022 9:09 AM CDT documented as of this encounter Functional Status * RETIRED Are you deaf or do you have serious difficulty hearing Answer Date of Assessment Author Status No 08/20/2021 5:51 PM ACADEMIC VICE PRESIDENT Activ e * RETIRED Are you blind or do you have serious difficulty seeing, even when wearing glasses? Answer Date of Assessment Author Status No 08/20/2021 5:51 PM ACADEMIC VICE PRESIDENT Activ e * Do you have serious difficulty walking or climbing stairs? Answer Date of Assessment Author Status No 08/20/2021 5:51 PM Amber Stone RN Active * Do you have difficulty dressing or bathing? Answer Date of Assessment Author Status No 08/20/2021 5:51 PM Amber Stone RN Active * Because of a physical, mental, or emotional condition, do you have difficulty doing errands alone such as visiting a doctor's office or shopping? Answer Date of Assessment Author Status No 08/20/2021 5:51 PM Amber Stone RN Active documented as of this encounter Mental Status * Because of a physical, mental, or emotional condition, do you have serious difficulty concentrating, remembering, or making decisions? Answer Entry Date Author Status No 08/20/2021 5:51 PM Amber Stone RN Active documented in this encounter Plan of Treatment Upcoming Encounters Date Type Department Care Team (Late st Contact Info) Description 01/23/2025 8:20 AM CDT Office Visit [facility] - [address], [address] [place] [phone] Frederick Valentin MD [address] [place] [id number] 04/28/2025 7:20 AM CDT Office Visit [facility] - [address], [address] [place] [id number] Chinedu Zuniga MD [address] [place] [id number] documented as of this encounter Goals Goal Patient Goal Type Associated Problems Recent Progress Patient-Stated? Author Consistently take medications as Prescribed General No Rakan Gonzalez RN documented as of this encounter Visit Diagnoses Not on filedocumented in this encounter Additional Health Concerns Infection Onset Date Last Indicated Resolved Time COVID-19 Rule Out 01/23/2022 01/24/2022 01/24/2022 7:03 PM CDT Assessment Noted Time PHQ-9 Depression Total Score: 18 022 2:51 PM CDT documented as of this encounter Care Teams Family Resource Management Professor Relationship Specialty Start Date End Date Laurie Garcia PA-C [address] [place] [id number] PCP - General NURSE PRACTITIONER 08/19/21 documented as of this encounter
--- OUTSIDE RECORDS SUMMARY | 2025-01-15 07:59 | XMS_ITS | Data Portability ---
Author Organization [facility] Address [address] [place] [address] Care Team Providers Care Generation Engineer Name Role Phone DANGELO PERDOMO Primary Care Provider Assessment Encounter Date Assessment Date Assessment LastModified by Organization Details LastModified Time 07/27/2021 07/27/2021 left eye and left hand twitch and is random. Not available 07/27/2021 11:40:35 08/25/2021 08/25/2021 left eye and left hand twitch and is random. called E erp specialist and they will call patient to get EEG moved up Not available 08/25/2021 16:15:10 08/10/2022 08/10/2022 she will schedule pap here Not available 08/11/2022 20:49:26 Plan of Treatment Reminders Order Date Submit Date Provider Last Modified By Organization Details Last Modified Time Details Appointments None recorded. Lab pap, IG + reflex HPV 2024 025 [facility], [address], [place], [address], 5 19:21:53 vaginal pathogens panel, GEOVANNA+probe, vaginal fluid 2024 025 CASSIE [facility], [address], [place], [address], 5 08:28:13 HbA1c (hemoglobin A1c), blood 2022 023 CASSIE [facility], [address], [place], [address], 3 15:06:53 CMP, serum or plasma 2022 023 [facility], [address], [place], [address], 3 15:06:53 lipid panel, serum 2022 023 [facility], [address], [place], [address], 3 15:06:54 TSH, ultra-sensi tive, serum 2022 023 [facility], [address], [place], [address], 3 15:06:54 TSH, ultra-sensi tive, serum 2020 021 [facility], [address], [place], [address], 1 10:37:16 noninvasive colorectal cancer DNA + occult blood screening, QL, stool 2020 021 [facility] (Cologuard Orders Only), [address], [address], [place], [address], 2 10:27:54 Referral neurologist referral 2021 022 SCH[facility]WIG Jerry Tyson, [address], [address], [place], [address], 2 03:19:48 neurologist referral 2020 021 [email or web address] Not available 08:18:52 Procedures None recorded. Surgeries None recorded. Imaging MAMMO, screening, bilateral 2024 025 [facility], [facility], [place], [address], 5 08:22:57 Medication Orders Advair HFA 230 mcg-21 mcg/actuati on aerosol inhaler [address] [facility], [address] [place], [address], 5 08:19:03 Proventil HFA 90 mcg/actuati on aerosol inhaler 2022 023 [facility], [address] [place], [address], 3 15:03:33 metronidazo le 0.75 % (37.5 mg/5 gram) vaginal gel 2022 023 [facility], [address] [place] [address], [address], 3 14:59:13 sertraline 50 mg tablet [address] [facility], [facility] [place], [address], 3 14:59:13 Advair HFA 230 mcg-21 mcg/actuati on aerosol inhaler [address] [facility], [address] [place] [address], [address], 5 08:19:03 sertraline 50 mg tablet [address] [facility], [address] [place] [address], [address], 3 14:59:13 Patient TargetsNo targets recorded. Patient Instructions Encounter Date Encounter Id Patient Instructions Last Modified By Organization Details Last Modified Time 06/28/2021 [id number] seizure: care instructions [place] [address] Not available 06/28/2021 11:34:25 07/27/2021 [id number] seizure: care instructions Not available 07/27/2021 11:42:07 08/25/2021 [id number] seizure: care instructions Not available 08/25/2021 15:56:56 08/10/2022 [id number] A healthy lifestyle: care instructions Not available 08/10/2022 14:56:14 08/05/2024 [id number] A healthy lifestyle: care instructions Not available 08/05/2024 10:08:47 Reason for Referral Neurologist Referral for Epi lepsy Referring Physician: Dangelo Perdomo Clinical Administrator, Encounter Date: 06/28/2021 Neurologist Referral for Epi lepsy Referring Physician: Dangelo Perdomo Clinical Administrator, Encounter Date: 07/27/2021 Results Created Date Observation Date Name Description Value Unit Range Abnormal Flag Note LastModifiedBy Organization Detail LastModifiedTime 06/28/20 22 06/28/2022 COLOG UARD cologuard result Cancel led - Order d not applic able Not Available [facility] (Cologuard Orders Only) [address], [place], [address], 06/28/2022 10:27:54 06/28/20 21 06/29/2021 TSH RFX ON ABNOR MAL TO FREE T4 TSH 0.411 uIU/m L 0.450- 4.500 below low normal Not Available [facility] ([facility]) [address] [place], [address], 06/29/2021 10:37:15 06/28/20 21 06/29/2021 TSH RFX ON ABNOR MAL TO FREE T4 T4,free (direct) 1.18 NG/dL 0.82-1 .77 Not Available [facility] ([facility]) [address] [facility], [place], [address], 06/29/2021 10:37:15 08/05/19 25 08/07/2024 NUSWA B VAGIN ITIS PLUS (VG+) atopobium vaginae HIGH - 2 score abnormal Not Available [facility] ([facility]) [address] [facility], [place], [address], 08/07/2024 08:28:13 08/05/1908/07/2024 NUA B VAGIN ITIS PLUS (VG+) bvab 2 LOW - 0 score Not Available [facility] ([facility]) [address] [facility], [place], [address], 08/07/2024 08:28:13 08/05/1908/07/2024 NUA B VAGIN ITIS PLUS (VG+) megasphaera 1 HIGH - 2 score abnormal Calcu late total score by carrie g the 3 indiv idual bacte rial vagin osis (BV) marke r score s toget her. Total score is inter prete d as follo ws: Total score 0-1: Indic ates the absen ce of BV. Total score 2: Indet ermin ate for BV. Addit ional clini davian data shoul d be evalu ated to estab jr a diagn osis. Total score 3-6: Indic ates the prese nce of BV. Not Available [facility] ([facility]) [address] [facility], [place], [address], 08/07/2024 08:28:13 08/05/1908/07/2024 NUA B VAGIN ITIS PLUS (VG+) jaskaran albicans, GEOVANNA NEGATI VE negati ve Not Available [facility] ([facility]) [address] [facility], [place], [address], 08/07/2024 08:28:13 08/05/1908/07/2024 NUA B VAGIN ITIS PLUS (VG+) jaskaran glabrata, GEOVANNA NEGATI VE negati ve Not Available [facility] ([facility]) [address] [facility], [place], [address], 08/07/2024 08:28:13 08/05/19 25 08/07/2024 NUA B VAGIN ITIS PLUS (VG+) trich vag by GEOVANNA NEGATI VE negati ve Not Available [facility] ([facility]) [address] [place], [address], 08/07/2024 08:28:13 08/05/19 25 08/07/2024 NUA B VAGIN ITIS PLUS (VG+) chlamydia trachomatis, GEOVANNA NEGATI VE negati ve Not Available [facility] ([facility]) [address] [place], [address], 08/07/2024 08:28:13 08/05/1908/07/2024 NUA B VAGIN ITIS PLUS (VG+) neisseria gonorrhoeae, GEOVANNA NEGATI VE negati ve Not Available [facility] ([facility]) [address] [place], [address], 08/07/2024 08:28:13 08/05/1908/06/2024 IGP,A PTIMA HPV,A GE GDLN age gdln acog testing 30-65 Not Available [facility] ([facility]) [address] [place], [address], 08/08/2024 19:21:52 08/05/19 25 08/07/2024 IGP, APTIM A HPV, RFX 16/18 ,45 HPV aptima Negati ve negati ve This nucle ic acid ampli ficat ion test detec ts fourt een high- risk HPV types (16,1 8,31, 33,35 ,39,4 5,51, 52,56 ,58,5 9,66, 68) witho ut diffe renti ation . Not Available [facility] ([facility]) [address] [place], [address], 08/08/2024 19:21:54 08/05/19 25 08/08/2024 IGP, APTIM A HPV, RFX 16/18 ,45 diagnosis: Commen t NEGAT ERIC FOR INTRA EPITH ELIAL LESTRIP N OR GERRY LUIS . PREDO SUNG CE OF COCCO BACIL LI CONSI STENT WITH SHIFT IN VAGIN AL LEANNE IS PRESE NT. Not Available [facility] ([facility]) [address] [facility], [place], [address], 08/08/2024 19:21:54 08/05/19 25 08/08/2024 IGP, APTIM A HPV, RFX 16/18 ,45 specimen adequacy: Kevin malave Satis facto ry for evalu ation . Endoc ervic al and/o r squam ous metap lasti c cells (endo cervi davian compo nent) are prese nt. Not Available [facility] ([facility]) [address] [place], [address], 08/08/2024 19:21:54 08/05/19 25 08/08/2024 IGP, APTIM A HPV, RFX 16/18 ,45 clinician provided ICD10: Kevin malave Z01.4 19 Not Available [facility] ([facility]) [address] [place], [address], 08/08/2024 19:21:54 08/05/19 25 08/08/2024 IGP, APTIM A HPV, RFX 16/18 ,45 performed by: Kevin cazares N Patrice chacon t, Cytot e[employer]o heron t (ASCP ) Not Available [facility] ([facility]) [address] [place], [address], 08/08/2024 19:21:54 08/05/19 25 08/08/2024 IGP, APTIM A HPV, RFX 16/18 ,45 . . Not Available [facility] ([facility]) [address] [place], [address], 08/08/2024 19:21:54 08/05/19 25 08/08/2024 IGP, APTIM A HPV, RFX 16/18 ,45 note: Commen t The Pap smear is a scree judi test desig adan to aid in the detec tion of noris ligna nt and malig nant condi tions of the uteri ne cervi x. It is not a diagn ostic proce dure and shoul d not be used as the sole means of detec ting cervi davian cance r. Both false -posi tive and false -nega tive repor ts do occur . Not Available [facility] ([facility]) [address] [facility], [place], [address], 08/08/2024 19:21:54 08/05/19 25 08/08/2024 IGP, APTIM A HPV, RFX 16/18 ,45 test methodology: Kevin t This liqui d based ThinP rep(R ) pap test was scree adan with the use of an image guide d systarnel m. Not Available [facility] ([facility]) [address] [facility], [place], [address], 08/08/2024 19:21:54 08/05/19 25 08/08/2024 IGP, APTIM A HPV, RFX 16/18 ,45 HPV genotype reflex Commen t Crite nino not met, HPV Genot ype not perfo rmed. Not Available [facility] ([facility]) [address] [facility], [place], [address], 08/08/2024 19:21:54 08/19/19 22 08/19/2021 CT, brain , w/o contr ast No observ ation record ed. [facility] [place] [address], [place], [address], 08/20/2021 15:00:20 10/14/19 22 10/12/2021 shila nuous EEG monit ed floyd al compo nent; 12-26 hrs, with VEEG (PROC ) No observ ation record ed. Not Available 2021 14:42:46 01/20/20 22 01/19/2022 CT, brain , w/o contr ast No observ ation record ed. [email or web address] [address] [facility], [place], [address], 01/19/2022 14:38:23 06/16/20 22 06/16/2022 CT, brain , w/o contr ast No observ ation record ed. [address] [address], [place], [address], 06/16/2022 16:35:15 06/16/20 22 06/16/2022 XR, chest , 2 view No observ ation record ed. [address] [address], [place], [address], 06/16/2022 16:35:28 08/14/19 23 08/13/2022 MRI, cervi davian spine , w/o contr ast No observ ation record ed. [facility] [address] [facility], [place], [address], 08/15/2022 16:57:35 01/03/20 24 01/03/2024 CT, head + brain , w/o contr ast No observ ation record ed. [email or web address] [place] [address], [place], [address], 01/12/2024 11:32:05 02/04/20 24 02/03/2024 MRI, brain + brain stem, w/o contr ast No observ ation record ed. [facility] [address] [facility], [place], [address], 02/05/2024 08:16:13 02/12/20 24 02/12/2024 shila nuous EEG monit oring , profe ssion al compo nent; 12-26 hrs, with VEEG (PROC ) No observ [facility]ion [facility] ed. [email or web address] Not Available 2023 13:07:02 Result Notes None recorded. Problems Name Problem SNOMED Code Status Onset Date Resolution Date Notes Provider Name and Address Organization Details Recorded Time Epilepsy 86716410 Active 2020 Aliya Calvo MA null, [place] [facility] 1 14:49:28 Asthma 517149354 Active 2020 Aliya Cal[place], [place] [facility] 1 14:50:05 Overweight 626957813 Active 2022 JÚNIOR PRAKASH Attn: Accountin g,[address], [place], [address], [place] [facility] 3 20:46:29 Serum thyroid stimulating hormone level outside reference range 877421692 Active 2022 JÚNIOR PRAKASH Attn: Accountin g,[address], [place], [address], [place] [facility] 3 20:46:36 Pneumococcal vaccination declined 996029242 Active 2022 JÚNIOR PRAKASH Attn: Accountin g,[address], [place], [address], [place] [facility] 3 20:49:02 Problem Notes None recorded. Procedures Surgical History Date Name Laterality Status Provider Name and Address Organization Details Recorded Time 07/10/19 22 Date of Last Mammogram completed JÚNIOR PRAKASH Attn: Accounting,[address] [facility], [place], [address], [place] [facility] 08/05/2024 09:16:53 07/10/19 20 Date of Last Pap Smear completed Angelina Reilly [place] [facility] 08/05/2024 09:02:08 Tonsillectomy completed JÚNIOR PRAKASH Attn: Accounting,[address], [place], [address], [place] [facility] 08/26/2020 15:06:04 Tubal Ligation completed JÚNIOR PRAKASH Attn: Accounting,[address] [facility], [place], [address] [place] - [facility] 08/26/2020 15:06:19 Imaging Results None recorded. Procedure Notes None recorded. Medical Equipment None Reported. Allergies No known drug allergies Medications Name Sig Start Date Stop Date Status Note LastModified by Organization Details LastModified Time levetiracet am 500 mg tablet TAKE 1 & 1/2 (ONE & ONE-HALF) TABLETS BY MOUTH TWICE DAILY active Not Available Not Available No t Available valacyclovi r 1 gram tablet TAKE ONE TABLET BY MOUTH EVERY DAY 08/26 completed Not Available Not Available Not Available Claritin 10 mg tablet Take 1 tablet every day by oral route for 90 days. 2020 active Not Available Not Available Not Avai lable metronidazo le 0.75 % (37.5 mg/5 gram) vaginal gel INSERT 1 APPLICATO RFUL INTO VAGINA ONCE DAILY FOR 5 DAYS active Not Available Not Available No t Available metronidazo le 500 mg tablet 06/28 completed Not Available Not Available Not Available amoxicillin 500 mg tablet TAKE 1 TABLET BY MOUTH EVERY 8 HOURS UNTIL ALL TABLETS ARE GONE 08/14 completed Not Available Not Available Not Available ibuprofen 600 mg tablet TAKE 1 TABLET BY MOUTH EVERY 6 HOURS NEEDED FOR PAIN active Not Available Not Available No t Available albuterol sulfate HFA 90 mcg/actuati on aerosol inhaler Inhale 2 puffs every 4 hours by inhalatio n route as needed. active Not Available Not Available No t Available sertraline 50 mg tablet Take 1 tablet every day by oral route in the morning for 90 days. 08/10 completed Not Available Not Available Not Available fluticasone propionate 230 mcg-salmete rol 21 mcg/actuati on HFA inhaler INHALE 2 PUFFS TWICE DAILY active Not Available Not Available No t Available calcium 600 mg (as carbonate)- vitamin D3 10 mcg (400 unit) tablet Take 1 tablet every day by oral route for 90 days. 2020 active Not Available Not Available Not Avai lable lacosamide 200 mg tablet TAKE 1 TABLET BY MOUTH TWICE DAILY active Not Available Not Available No t Available Vimpat 100 mg tablet TAKE 1 TABLET BY MOUTH IN THE MORNING AND 2 IN THE EVENING 11/18 completed Not Available Not Available Not Available Suprep Bowel Prep Kit 17.5 gram-3.13 gram-1.6 gram oral solution TAKE 177MLS BY MOUTH EVERY 12 HOURS. POUR 6 OUNCE BOTTLE OF SUPREP LIQUID INTO THE MIXING CONTAINER . ADD COOL DRINKING WATER TO 16 OUNCE KEEGAN ON CONTAINER AND MIX.DRINK ALL LIQUID IN CONTAINER , THEN DRINK 2 MORE 16OZ CONTAINER S OF WATER OVER THE NEXT HOUR 08/10 completed Not Available Not Available Not Available Breo Ellipta 50 mcg-25 mcg/dose powder for inhalation Inhale 1 inhalatio n every day by inhalatio n route. 2024 active Not Available Not Available Not Avai lable Vitals Date Recorded Body height Body mass index (BMI) Body weight Heart rate Oxygen saturation Oxygen saturation in Arterial blood by Pulse oximetry Body temperature Systolic And Diastolic Provider Name and Address Organization Details Last Updated DateTime 2 167.64 cm 25.3 kg/m2 40648.2 1 g 62 /min 96 % 96 % 97.4 [degF] 122/80 mm[Hg] Angelina Reilly MA [facility] 2 11:18:35 Date Recorded Body height Body mass index (BMI) Body weight Heart rate Systolic And Diastolic Provider Name and Address Organization Details Last Updated DateTime 08/05/2024 167.64 cm 29.3 kg/m2 48767.32 g 74 /min 119/78 mm[Hg] Angelina Reilly MA [facility] 08/05/2024 09:01:26 Date Recorded Body height Body mass index (BMI) Body weight Heart rate Oxygen saturation Oxygen saturation in Arterial blood by Pulse oximetry Systolic And Diastolic Provider Name and Address Organization Details Last Updated DateTime 3 167.64 cm 24.5 kg/m2 28774.0 4 g 90 /min 98 % 98 % 120/78 mm[Hg] Valentine Kelley MA [facility] 3 14:25:04 Date Recorded Body height Body mass index (BMI) Body weight Heart rate Oxygen saturation Oxygen saturation in Arterial blood by Pulse oximetry Systolic And Diastolic Provider Name and Address Organization Details Last Updated DateTime 1 167.64 cm 25.8 kg/m2 87782.7 8 g 85 /min 95 % 95 % 132/84 mm[Hg] Angelina Reilly MA [facility] 11:30:42 Social History Question Answer Notes LastModified by Organizat ion Details LastModified Time Tobacco Smoking Status Never Smoker Aliya Calvo MA [facility], [facility] 08/26/2020 14:53:01 Do You Have An Advance Directive? No Information n ot available 08/26/2020 In The 14 Days Before Symptom Onset, Have You Had Close Contact With A Laboratory-confirm ed COVID-19 While That Case Was Ill? No Information n ot available 11/18/2020 In The 14 Days Before Symptom Onset, Have You Had Close Contact With A Person Who Is Under Investigation For COVID-19 While That Person Was Ill? No Information not available 11/18/2020 Have You Been To An Area Known To Be High Risk For COVID-19? No Information not available 11/18/2020 What Was The Date Of Your Most Recent Tobacco Screening? 08/05/2024 Information not available 08/05/2024 Do You Have Smoke And Carbon Monoxide Detectors In Your Home? Yes Information not available 08/26/2020 Has Tobacco Cessation Counseling Been Provided? Yes Information not available 11/18/2020 On What Date Was Tobacco Cessation Counseling Provided? 08/05/2024 Information not available 08/05/2024 Sex: Unknown Functional Status Question Answer Note LastModified by Organizat ion Details LastModified Time Do you use any illicit or recreational drugs? Yes Marijuana-Da mauricio for Epilespy Information not available 08/26/2020 Do you or have you ever used any other forms of tobacco or nicotine? No Information not available 08/26/2020 What is your level of alcohol consumption? Occasional Information not available 08/05/2024 Mental Status None recorded. Family History Relationship Description Onset Age of this Age Resolved Age Notes LastModified by Organization Details LastModified Time Unspecified Relation Depressive disorder [email or web address] Not available 08/26 14:51:59 Unspecified Relation Anxiety sdevriesma Not available 2020 14:52:04 Mother Hypertensive disorder Not available 2020 11:23:16 Mother Diabetes mellitus Not available 2020 11:23:21 Medical History Condition Response Coronary Artery Disease N Other N High Blood Pressure N Atrial Fibrillation N Kidney or Bladder Problems N Thyroid Problems N GI Problems N Depression N COPD N Blood Clots N Skin Problems N Anemia N Heart Attack (SC) N Anxiety Disorder N Diabetes N Muscle, Joint, or Bone Problems N Seizures/Epilepsy Y Acid Reflux (GERD) N Cancer N Stroke N Asthma Y Allergies N High Cholesterol N Hepatitis N Liver Disease N Headaches N Heart Failure N Osteoporosis N Gynecological History Statement/Question Response Date of Last Mammogram 07/10/2021 Date of LMP Menses Monthly N Date of Last Pap Smear 07/10/2019 Age at Menarche 11 Current Control Method Menopause Age at First Child 21 LMP Unknown Obstetrics History GPAL:G 2 P 2 0 0 2 Type Value Multiple Births 0 Full Term 2 Induced 0 Spontaneous 0 Premature 0 Living 2 Ectopics 0 Total 2 Past Encounters Encounter ID Performer Location Encounter Start Date Encounter Closed Date Diagnosis/Indication Diagnosis SNOMED-CT Code Diagnosis ICD10 Code Diagnosis Note [id number] JÚNIOR PRAKASH [facility] [address] [place] [address] 08/26/2020 07:51:15 08/27/2020 08:17:24 Asthma 022499096 J45.909 - f/u one month- use advair daily and rescue prn- ER if asthma exacerbati on Epilepsy 22076712 G40.[address] Guan diagnosed 6 years ago. MRI, EEG done 1-2 months ago. they increased her vimpat. october 05. is next appointmen t - continue with neurology- continue medication as prescribed - f/u prn Screening mammography 254602 Z12.31 due for mammogram. last mammogram was normal. no breast complaints . Menopause present 094511 006 N95.1 Patient stopped having periods in 30's. Has not had pap in many years. Given [place] [facility] [place]. Obesity 671609701 E66.9 Adult heal th examination 522629222 Z00.00 - labs- start vitamin D with calcium- discussed diet- excercise 30 mins 5x week- mammogram and pap to be scheduled, number given to patient [id number] JÚNIOR PRAKASH [facility] [address] [place] [address] 11/18/2020 09:40:12 11/18/2020 15:42:09 Seasonal allergic rhinitis 640615357 J30.2 needs to control allergies as asthma gets worse. She takes benadryl but makes her tired. Asthma 971388623 J45.90 9 not taking daily. using rescue 1x per week. Use daily inhaer DAILY and make sure to rinse mouth after use - f/u one month - use advair daily and rescue prn - ER if asthma exacerbati on Epilepsy 68718763 G40.[address] Guan diagnosed 6 years ago. MRI, EEG done 1-2 months ago. they increased her vimpat. october 05. is next appointmen t. missed appointmen t so reschedule d for March. had one seizure but mild. - continue with neurology - continue medication as prescribed - f/u prn Sleep apnea 93312501 G47 .30 Patient with suspected sleep apnea. She snores, wakes up gasping for air. Family memebers also ahve sleep apnea. [id number] JÚNIOR PRAKASH [facility] [address] [place] [address] 06/28/2021 11:04:02 06/29/2021 09:48:55 Asthma 491368610 J45.909 not taking daily. using rescue 1x per week. Use daily inhaler DAILY and make sure to rinse mouth after use - f/u one month - use advair daily and rescue prn - ER if asthma exacerbati on Epilepsy 35822166 G40.[address] Guan diagnosed 6 years ago. MRI, EEG done 1-2 months ago. they increased her vimpat. missed appointmen t so reschedule d for March. he recently released her from his care. she does not know why. needs new neuro. she will call insurance company - continue with neurology - continue medication as prescribed - f/u prn Depressive disorder 3709 4641 T82.A - advised counseling -Patient was educated on his prescribed medication s, rationale for medication s, dosing indication s, adverse reactions, black box warning, dosing indication s, SE (e.g., decreased libido, weight gain, gynecomast ia, and galactorrh ea) and the risks and benefits. -Call center with questions/ concerns. Go to ER or call 911 for crisis (e.g., suicidal behaviors, suicidal ideations, intent or plan emerge). Additional ly, patient has suicide hotline #[phone]. - f/u one month - call with questions Screening for malignant neoplasm of colon 713552092 Z12.11 no family history of colon cancer, denies cahnge in bm, blood in stool or dark stools Serum thyr oid stimulating hormone level outside reference range 173090687 R79.89 [id number] JÚNIOR PRAKASH [facility] [address] [place] [address] 07/27/2021 10:51:30 08/03/2021 09:17:[address] Guan diagnosed 6 years ago. MRI, EEG done 3 months ago. they increased her vimpat. missed appointmen t so reschedule d for March. he recently released her from his care. she does not know why. needs new neuro. she will call insurance company. has had a few more seizures on jul 13 and has not had any more since. most series happen in her sleep and cause her to uriante. - continue with neurology - continue medication as prescribed - f/u prn Depressive disorder 1704 8249 F32.A sx improved. will continue same medication . - advised counseling -Patient was educated on his prescribed medication s, rationale for medication s, dosing indication s, adverse reactions, black box warning, dosing indication s, SE (e.g., decreased libido, weight gain, gynecomast ia, and galactorrh ea) and the risks and benefits.- Call center with questions/ concerns. Go to ER or call 911 for crisis (e.g., suicidal behaviors, suicidal ideations, intent or plan emerge). Additional ly, patient has suicide hotline #.- f/u one month- call with questions [phone] JÚNIOR PRAKASH [facility] [address] [place] [address] 08/25/2021 15:28:47 08/26/2021 10:16:31 Epilepsy [id number] G40.909 Patient went to [facility] for continued seizures. She was kept and d/c 08/22/21. She is to f/u with neuro and has apt November 15 at 8m. They will call her if opening pops up . She has EEG scheduled October 12.Taking keppra 500mg bid, vimpat 200mg bid. no seizures since hospital visit.Dr Chinedu sung [facility] one week - continue with neurology - continue medication as prescribed - f/u prn [id number] JÚNIOR PRAKASH [facility] [address] [place] [address] 08/10/2022 14:14:22 08/10/2022 15:19:58 Overweight [id number] E66.3 Bacterial vaginosis 4197 70342 N76.0 fishy odor and discharge. denies pelvic pain, fever, chils- swab unable to do today- tx sent, come in for swab if sx persist Asthma [id number] J45.90 9 not taking daily. using rescue 1x per week. Use daily inhaler DAILY and make sure to rinse mouth after use - f/u one month - use advair daily and rescue prn - ER if asthma exacerbati on Serum thyr oid stimulating hormone level outside reference range [id number] R79.89 repeat Epilepsy [id number] G40.90 9 following endo and recently had visit. need records. Patient admits break through seizures when skipping doses of medication due to work schedule. Since taking as prescribed she has not had seizures. - patient does not drive- continue with neurology - continue medication as prescribed - f/u prn Pneumococc al vaccination declined [id number] Z28.21 declined [id number] Vadim Barnard MD [facility] [address] [place] [address] 08/05/2024 08:54:38 08/05/2024 10:12:49 Gynecologic examination [id number] Z01.419 Pap obtainedCB E performedB reast education provided Screening mammography 24 465138 Z12.31 due for mammogram. last mammogram was normal. no breast complaints . Overweight [id number] E66 .3 Positive s creening for depression on PHQ-9 (Patient Health Questionnaire 9) [id number] 00592 Z13.31 positive, 5will follow updenies si/hi Health Concerns Section Related Observation LastModified by Organization Detai ls LastModified Time None Recorded Concern Status LastModified by Organization Details LastModified Time None Recorded Advance Directives Directive N: Payers Insurance Date Sequence Insurance Name Policy Number Policy Aquino Covered Member ID Aquino Member ID Guarantor Name 08/05/2024 [place] [facility] Mili Valle [id number] Mili Valle 08/05/2024 1 [place] Mili Valle [id number] Mili Valle 08/05/2024 2 [place] WHEN MEDICARE OR MEDICARE REPLACEMENT PRIMARY) Mili Valle [id number] Mili Valle 08/05/2024 2 [place] Mili Valle [id number] Mili Valle 08/09/2024 1 [facility] (MEDICARE REPLACEMENT/A DVANTAGE - PPO) [id number] Mili Copeland Leonard [id number] Mili Valle 08/05/2024 1 [employer] - [place] (MEDICARE REPLACEMENT/A DVANTAGE - HMO) [id number] Mili Copeland Leonard [id number] Mili Valle 08/05/2024 3 [employer] BETTER HEALTH - PREMIER PLAN - DUAL (MEDICARE - MEDICAID REPLACEMENT HMO) Mili Valle [id number] Mili Valle 08/05/2024 3 [employer] - [place]IME (MEDICARE REPLACEMENT/A DVANTAGE - HMO) Mili Valle [id number] Mili Valle 08/05/2024 2 [place]IC[place] OR MEDIC[place] REPLACEMENT PRIMARY) Mili Valle [id number] Mili Valle 08/05/2024 1 [employer] BETTER HEALTH - PREMIER PLAN - DUAL (MEDICARE - MEDICAID REPLACEMENT HMO) Mili Valle [id number] Mili Valle 08/05/2024 1 [employer] (MEDICARE REPLACEMENT/A DVANTAGE - HMO) Mili Valle [id number] Mili Valle 08/05/2024 2 [employer] [place] - [place] ON OR AFTER 2020 (MEDICAID REPLACEMENT - HMO) Mili Valle [id number] Mili Valle Notes Date Note Type Note Provider Name and Address Organization Details Recorded Time 06/28/2021 text/html Anxiety/Depressi onRepo rted bypatient.Quality:mood worse;increased anxiety Severity:unable to maintain relationships;interfer ence with sleep Duration:started: (1 year ago and has worsened) Context:family problems; smokes marijuana Associated Symptoms:denies homicidal ideations; no significant weight gain;weight loss ( lbs);eating less;high irritability;anxiety;d epression;sleep disturbances;anhedonia ;feeling guilty;sleeping more (hypersomnia);despair/ hopelessnessSeizureRep orted bypatient.Onset/Timing :age/date of onset: 44; better Context:MRI head; EEG Alleviating Factors:medications that helped Associated Symptoms:no incontinenceSleep ProblemsReported bypatient.Hand Dominance:right General Sleep:snoring;unrefres jory sleep Quality:loud snoring;gasping for air Prescribed sleep medications:not taking medication to help sleep Associated Symptoms:family history of sleep disorder Mili is a 51 YO F presenting for my medication has changed my mood. Patient states she got letter from Dr Guan stating she could no longer be seen here. She states she told him about her depressive symptoms and he kept increasing medications. She has not had seizure in a couple of months. Still taking her vimpat 200mg. She has been on this dose for one year. Patient has asthma and uses rescue inhaler > 2x per week. She does have advair but does not use it daily. Has not been to ER this year. patient feels depressed. sleeping too much at one point. getting job two months ago has kept her on schedule but still sleeps total of 4 hours and wakes up multiple times. takes 3 hours to fall back asleep. . grandchildren keep her happy. She lost some wgiht due to decreased appetitie. she is irritable and snaps at ehr loved ones. JÚNIOR PRAKASH Attn: Accounting,[address] [facility], [place], [address], [facility] 06/28/2021 12:18:58 07/27/2021 text/html Anxiety/Depressi onRepo rted bypatient.Quality:mood worse;increased anxiety Severity:unable to maintain relationships;interfer ence with sleep Duration:started: (1 year ago and has worsened) Context:family problems; smokes marijuana Associated Symptoms:denies homicidal ideations; no significant weight gain;weight loss ( lbs);eating less;high irritability;anxiety;d epression;sleep disturbances;anhedonia ;feeling guilty;sleeping more (hypersomnia);despair/ hopelessness Mili is a 51 YO F presenting for F/U jul 13 three seizures. first one was awake and laying down and lasted seconds. seconds two asleep and lasted a minute or less. no injuries. she did pee patienT no longer feels depressed. Her enregy and sleep improved. No longer feeling irritable. very happy on current medication. States she had her finger twitch a few a times. wants to know if this is medication side effetc. JÚNIOR PRAKASH Attn: Accounting,[address] [place], [address], [facility] 08/05/2021 11:50:54 08/25/2021 text/html Patient presents for ER visit. Patient went to [facility] for continued seizures. She was kept and d/c 08/22/21. She is to f/u with neuro and has apt November 15 at 8m. They will call her if opening pops up . She has EEG scheduled October 12.Taking keppra 500mg bid, vimpat 200mg bid. no seizures since hospital visit.Dr Chinedu Zuniga [facility] one week JÚNIOR PRAKASH Attn: Accounting,[address] [place], [address], [facility] 08/25/2021 19:58:09 08/10/2022 text/html Mili is a 52 Y OAA F PMHXZ epilepsy presenting for F/U saw [place] jul 28 and states no changes were made to medicaton. Still taking vimpat 200mg bid and levetiracetam 500mg bid. She admits breakthrough seizures last year were due to skipping medication due to work schedule. 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 no recent seizures. She c/o of a few days of cahnge in vaginal discharge and smell. denies fever, chills, pelvic pain. JÚNIOR PRAKASH Attn: Accounting,[address] [facility], [place], [address], [facility] 08/11/2022 20:53:20 08/05/2024 text/html Mili is here f or pap and mammogram mccoy no concerns today. not sexually active for many years.LMP: age 46Last Pap: 2020?Last mammogram: 2021Fam hx: denies breast, cervical, uterine, ovarian cancers JÚNIOR PRAKASH Attn: Accounting,[address] [facility], [place], [address], [facility] 08/05/2024 10:10:43 OBGyn Episode No OBEpisode recorded.
--- OUTSIDE RECORDS SUMMARY | 2025-01-15 08:00 | XMS_ITS | Encounter Summary ---
Author Organization [facility] Address [facility] [place] [address] Care Team Providers Care Gum Mixer Name Role Phone Laurie Garcia PA-C Primary Care Provider [phone] Encounter Details Date Type Department Care Team (Latest Contact Info) Description 07/29/2024 [employer] Message [facility] [place] [address] [id number] [facility] Provider [facility]NA[facility]EMENT CLIN[facility] Social History Tobacco Use Types Packs/Day Years Used Date Smoking Tobacco: Never Passive Smoke Exposure: Never Smokeless Tobacco: Never Alcohol Use Standard Drinks/Week Comments Not Currently 0 (1 standard drink = 0.6 oz pur e alcohol) Rarely PHQ-2 Answer Date Recorded Patient Health Questionnaire-2 Score 0 01/26/2023 Comments No Sex and Gender Information Value Date Recorded Sex Assigned at Not on file Legal Sex Female 6:28 PM DATA MIGRATION LEAD Gender Identity Not on file Sexual Orientation Not on file documented as of this encounter Functional Status * RETIRED Are you deaf or do you have serious difficulty hearing Answer Date of Assessment Author Status No 08/20/2021 5:51 PM DATA MIGRATION LEAD Activ e * RETIRED Are you blind or do you have serious difficulty seeing, even when wearing glasses? Answer Date of Assessment Author Status No 08/20/2021 5:51 PM DATA MIGRATION LEAD Activ e * Do you have serious [...] Description 01/23/2025 8:20 AM CDT Office Visit [facility] - [address], [address] [phone] Frederick Valentin MD [address] [place] [phone] 04/28/2025 7:20 AM CDT Office Visit [facility] - [address], [address] [phone] Chinedu Zuniga MD [address] [place] [address] [phone] documented as of this encounter Goals Goal Patient Goal Type Associated Problems Recent Progress Patient-Stated? Author Consistently take medications as Prescribed General No Rakan Gonzalez RN documented as of this encounter Visit Diagnoses Not on filedocumented in this encounter Additional Health Concerns Assessment Noted Time PHQ-9 Depression Total Score: 12 022 1:19 PM CDT documented as of this encounter Care Teams Gum Mixer Relationship Specialty Start Date End Date Laurie Garcia PA-C [address] [place] [address] PCP - General NURSE PRACTITIONER 08/19/21 documented as of this encounter
[2025-01-15 08:02] VITALS: BP 135/101; PULSE 70; RESP 18; TEMP 36.7; O2SAT 100
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
--- OUTSIDE RECORDS SUMMARY | 2025-01-15 08:24 | XMS_ITS | Clinical Summary ---
Author Organization [facility] Address [facility] [place] [address] Care Team Providers Care Windows Server Engineer Name Role Phone Laurie Garcia PA-C Primary Care Provider [phone] Allergies No known active allergies Medications albuterol [...] (03/22/2023): Added automatically from request for surgery [id number] Abnormal serum thyroid stimulating hormone (TSH) level 08/10/2022 Overweight 08/10/2022 Pneumococcal vaccination declined 08/10/2022 Seizure ([facility]) 08/19/2021 Asthma ([facility]) 08/25/2020 Epilepsy ([facility]) 08/25/2020 Resolved Problems Problem Noted Date Diagnosed Date Resolved Date Change in bowel habit 01/18/20222023 Overview (01/18/2022): Added automatically from request for surgery [id number] Blood in stool 01/18/2022 07/09/2024 Overview (01/18/2022): Added automatically from request for surgery [id number] Weight loss 01/18/2022 07/09/2024 Overview (01/18/2022): Added automatically from request for surgery [id number] Diarrhea, unspecified type 01/18/2022 1 Overview (01/18/2022): Added automatically from request for surgery [id number] Encounters Date Type Department Care Team Description 11/22/2024 8:00 AM CDT Office Visit [facility] - [address], [address] [place] [address] Chinedu Zuniga MD Follow Up (Localization-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,//Cervical myelopathy/) 11/22/2024 Travel 10/23/2024 Telephone [facility] - [address] [place] [address] Chinedu Zuniga MD Medication from [...] on file Legal Sex Female 6:28 PM CHIEF ARCHITECT Gender Identity Not on file Sexual Orientation Not on file Last Filed Vital Signs Vital Sign Reading Time Taken Comments Blood Pressure 124/73 11/22/2024 8:03 AM CDT Pulse 69 11/22/2024 8:03 AM CDT Temperature 37.7 C (99.8 F) 07/09/2024 7:48 AM CHIEF ARCHITECT Respiratory Rate 12 11/22/2024 8:03 AM CDT [...] Description 01/23/2025 8:20 AM CDT [facility] - [address], [address] [place] [phone] Frederick Valentin MD [address] [place] [address] 04/28/2025 7:20 AM CDT [facility] - [address], [address] [place] [phone] Chinedu Zuniga MD [address] [place] [phone] Health Maintenance Due Date Last Done Comments [...] (10 Years) 01/28/2032 01/27/2022, 01/27/2022 PHQ-2 (Physician [place]) Completed 11/22/2024 Meningococcal B Vaccine Aged Out [...] medications as Prescribed General No Rakan Gonzalez, backrest assembler Procedure Name Priority Date/Time Associated Diagnosis Comments COLONOSCOPY Routine 01/27/2022 11:54 AM CDT from Last 3 Months or Most Recently Relevant to Health [place] [address] Advance Directives * Full Code (Latest Code Status on File) Date Activated Date Inactivated Comments 08/19/2021 10:59 PM 08/22/2021 7:12 PM Care Teams Windows Server Engineer Relationship Specialty Start Date End Date Laurie Garcia PA-C [address] [place] [id number] PCP - General NURSE PRACTITIONER 08/19/21
--- OUTSIDE RECORDS SUMMARY | 2025-01-15 08:24 | XMS_ITS | Encounter Summary ---
Author Organization [facility] Address [facility] [place] [address] Care Team Providers Care Public Health Training Assistant Name Role Phone Laurie Garcia PA-C Primary Care Provider [phone] Encounter Details Date Type Department Care Team (Latest Contact Info) Description 07/29/2024 [employer] Message [facility] Interventional [place] [address] [phone] [facility] Provider PAIN MANAGEMENT CLINIC Social History Tobacco [...] on file Legal Sex Female 6:28 PM HEALTH PROMOTION COORDINATOR Gender Identity Not on file Sexual Orientation Not on file documented as of this encounter Functional Status * RETIRED Are you deaf or do you have serious difficulty hearing Answer Date of Assessment Author Status No 08/20/2021 5:51 PM HEALTH PROMOTION COORDINATOR Activ e * RETIRED Are you blind or do you have serious difficulty seeing, even when wearing glasses? Answer Date of Assessment Author Status No 08/20/2021 5:51 PM HEALTH PROMOTION COORDINATOR Activ e * Do you have serious [...] CDT Office Visit [facility] - [address], [address] [phone] Frederick Valentin MD [address] [place] [phone] 04/28/2025 7:20 AM CDT Office Visit [facility] - [address], [address] [phone] Chinedu Zuniga MD [address] [place] [phone] documented as of this encounter Goals Goal Patient Goal Type Associated Problems Recent Progress Patient-Stated? Author Consistently take medications as Prescribed General No Rakan Gonzalez RN documented as of this encounter Visit Diagnoses Not on filedocumented in this encounter Additional Health Concerns Assessment Noted Time PHQ-9 Depression Total Score: 12 022 1:19 PM CDT documented as of this encounter Care Teams Public Health Training Assistant Relationship Specialty Start Date End Date Laurie Garcia PA-C [address] [place] [address] PCP - General NURSE PRACTITIONER 08/19/21 documented as of this encounter
--- OUTSIDE RECORDS SUMMARY | 2025-01-15 08:24 | XMS_ITS | Encounter Summary ---
Author Organization [facility] Address [address] [place] [address] Care Team Providers Care Patternmaker Helper Name Role Phone Laurie Garcia PA-C Primary Care Provider [phone] Encounter Details Date Type Department Care Team (Late st Contact Info) Description 01/19/2022 Prep for Procedure [facility] [place], [place] [address] Brent Akhtar MD [address] [phone] Social History Tobacco Use Types Packs/Day Years [...] on file Legal Sex Female 6:28 PM OIL TANK CAR CLEANER Gender Identity Not on file Sexual Orientation [...] Assessment Author Status No 08/20/2021 5:51 PM OIL TANK CAR CLEANER Activ e * RETIRED Are you blind or do you have serious difficulty seeing, even when wearing glasses? Answer Date of Assessment Author Status No 08/20/2021 5:51 PM OIL TANK CAR CLEANER Activ e * Do you have serious [...] Description 01/23/2025 8:20 AM CDT Office Visit [facility] - [address], [address] [place] [phone] Frederick Valentin MD [address] [place] [address] 04/28/2025 7:20 AM CDT Office Visit [facility] - [address], [address] [place] [phone] Chinedu Zuniga MD [address] [place] [address] documented as of this encounter Goals Goal [...] documented as of this encounter Care Teams Patternmaker Helper Relationship Specialty Start Date End Date Laurie Garcia PA-C [address] [place] [address] PCP - General NURSE PRACTITIONER 08/19/21 documented as of this encounter
[2025-01-15] MEDS: TETANUS,DIPHTHERIA,AC PERTUSSIS ADULT (0.5 ML) BOOSTRIX IM (08:59)
== END 2025-01-15 09:45 | disposition home or self-care (01) ==
PROVIDERS: Emergency Provider Emergency Medicine; PCP Physician Assistant
DX: T24.212A Burn of second degree of left thigh, initial encounter (principal); J45.909 Unspecified asthma, uncomplicated; W39.XXXA Discharge of firework, initial encounter; Z23 Encounter for immunization
CPT/HCPCS: 16020; 90471; 90715; 99283